=== PATIENT | male | born 1970 | race Caucasian/White ===

== ENCOUNTER 2024-08-11 09:03 | Emergency (ER) | payer OTHER, SELFPAY ==
[2024-08-11 09:05] VITALS: BP 137/71; PULSE 103; RESP 20; TEMP 36.5; O2SAT 94
--- NOTE | 2024-08-11 09:52 | CT_ITS ---
PROCEDURE: CHEST WITHOUT CONTRAST REASON FOR EXAM: Trauma TECHNIQUE: Chest CT without contrast. COMPARISON: None. FINDINGS: Hardware: None. Lymph nodes: No mediastinal hilar or axillary lymphadenopathy. Heart and Vasculature: Normal heart size. No pericardial effusion. Thoracic aorta and pulmonary arteries have normal contours; noncontrast technique limits evaluation. Coronary Artery Calcifications: Cystic lesion medially left hemithorax measuring up to 3.4 cm. Intrapulmonary cyst is suggested. Localized tiny pneumothorax can not be entirely excluded. [place] consolidation in the right lower lobe with air bronchograms are seen. CT abdomen pelvis dictated separately. Minimally displaced anterolateral left 7th rib fracture CT/Chest without Contrast IMPRESSION: Cystic lesion medially left hemithorax measuring up to 3.4 cm. Intrapulmonary cyst is suggested. Localized tiny pneumothorax cannot be entirely excluded. Confluent pneumonia in the right lower lobe. Minimally displaced anterolateral left 7th rib fracture. One or more dose reduction techniques were used (e.g., Automated exposure contr ol, adjustment of the mA and/or kV according to patient size, use of iterative reconstruction technique). Reading [facility]
--- NOTE | 2024-08-11 09:52 | CT_ITS ---
PROCEDURE: ABDOMEN/PELVIS W IV CONT ONLY REASON FOR EXAM: Trauma TECHNIQUE: Abdomen and pelvis CT with intravenous contrast. COMPARISON: None. FINDINGS: CT chest dictated separately. Liver: Unremarkable. Gallbladder: Unremarkable. Spleen: Unremarkable. Pancreas: Unremarkable. Adrenals: Unremarkable. Kidneys: Unremarkable. Bladder: Unremarkable. Reproductive Organs: Left-sided inguinal hernia containing a portion of the bladder.. Bowel: Unremarkable. Appendix: Normal. Lymph nodes: No suspicious lymph node enlargement. Vasculature: Major vascular structures are unremarkable. Peritoneum / Retroperitoneum: No ascites. No free air. Bones: Unremarkable. CT/Abdomen/Pelvis W IV Cont ONLY IMPRESSION: Left-sided inguinal hernia containing fat and a portion of the bladder. No other acute process in the abdomen or pelvis. One or more dose reduction techniques were used (e.g., Automated exposure contr ol, adjustment of the mA and/or kV according to patient size, use of iterative reconstruction technique). Reading Location: [facility]
--- NOTE | 2024-08-11 09:54 | ED.VIS.FALL ---
HPI HPI - Fall History of Present Illness Chief Complaint: Fall Detail of Chief Complaint: Fell 7 feet to the ground at work on Tuesday. Informant: patient and spouse/S.O. Occured/Mechanism Occurred: Yesterday Narrative: Fell 78 feet to the ground at work yesterday. Complaining primarily left rib cage pain. Pain/Injury Pain Location: chest (Left rib cage pain.) Quality of Pain: Sharp Current Severity: 7/10 Maximum Severity: Moderate Narrative Narrative: Healthy 54-year-old male was at work yesterday was about 78 feet off the ground and a plank broke fell to the ground injuring his left rib cage. Said he did not hit his head. Denies any head or neck pain. Denies any back pain. He is concerned with his left lateral rib cage. She also hit his hip but he said it feels fine has been able to walk. No LOC. No headache. Prior similar symptoms: No Recent Illness/Hospitalization: No PFSH PFSH Medical History no medical history no medical history Home Medications ?Medication ?Instructions ?Recorded ?Last Taken ?Type azithromycin 250 mg tablet 250 mg PO DAILY 4 days #4 tabs 08/11/24 Unknown Rx (Zithromax) hydrocodone 5 mg-acetaminophen 300 1 tab PO Q4H 7 days #30 tabs 08/11/24 Unknown Rx mg tablet Allergy/AdvReac Type Severity Reaction Status Date / Time No Known Allergies Allergy Verified 08/11/24 11:30 Family History no significant family his Surgical History no surgical history Social History Smoking Status: Former smoker ROS ROS ED ROS Narrative Recent fever. Believes he may have a viral syndrome. Constitutional Constitutional ED: Reports fever(s) Eyes Eyes: Denies blurry vision ENT ENT ED: Denies ear pain Cardiovascular Cardiovascular: Reports other Details: Left rib pain post fall. Respiratory/Chest Respiratory/Chest: Denies dyspnea Gastrointestinal Gastrointestinal: Denies abdominal pain Genitourinary Genitourinary ED: Denies dysuria or hematuria Musculoskeletal Musculoskeletal: Denies arthralgias Integumentary Denies abscess Neurologic Neurologic: Denies headache(s) Psychiatric Psychiatric: Denies anxiety or depression Endocrine Endocrinology: Denies polydipsia, polyphagia or polyuria Hematologic/Lymphatic Hematologic/Lymphatic: Denies easy bleeding, easy bruising, lymphadenopathy or other Allergic/Immunologic Allergic/Immunologic ED: Denies mouth swelling, tongue swelling or urticaria EXAM Physical Exam Narrative Exam Narrative: 54-year-old male sitting upright in bed. Vital signs are stable afebrile. and son in the room. Pulse ox 94% on room air no signs hypoxia. He is in no distress. H EENT exam pupils round reactive light. Extra motions are intact. No trauma to his face nor tenderness. No swelling or bruising. Scalp nontender. Moist mucous membranes. Posterior pharynx unremarkable. Neck nontender. Trachea midline. Normal flexion extension and rotation of his neck. Back and spine nontender. No bruising. No signs of trauma. Lungs clear to auscultation bilaterally. Heart tachycardic 103 no murmur. Sternum and right chest nontender. Left lateral ribs tender to palpation. No crepitance or subcu air. No bruising. Abdomen soft nondistended normal bowel sounds no peritoneal signs. When you push in his left flank area he complains of rib cage pain. Pelvic girdle intact. Moving all 4 extremities. Normal flexion extension of both hips and knees dorsi and plantarflexion. The left hip is nontender. He has normal range of motion. There is no shortening or rotation. Neurologically he is awake and alert no focal motor deficits. GCS 15. Answering questions and following commands. Const Vital Signs: 08/11/24 09:05 08/11/24 11:05 08/11/24 13:11 Temperature 97.7 F L Temperature Source Temporal Pulse Rate 103 H 72 Respiratory Rate 20 H Blood Pressure 137/71 H 127/62 H 123/71 H Blood Pressure Mean 93 83 88 Pulse Ox 94 91 Oxygen Delivery Method Room Air Room Air Positive well nourished and well developed; Negative for cachectic, contractures or unkempt General Appearance ED: well developed and NAD; Negative for unkempt, cachectic or contractures Nutritional Appearance: Negative for cachectic HEENT Reports normocephalic atraumatic; Negative for trauma, contusion, hematoma or tenderness Eyes PERRL and EOMs intact bilaterally Neck full ROM, no lymphadenopathy and supple Chest Wall inspection of chest normal; Negative for palpation of chest normal Chest Narrative: Left lateral rib cage tenderness. No crepitance. No bruising or subcu air. Resp normal respiratory effort, no retractions and clear to auscultation bilaterally Auscultation: Negative for rales, rhonchi, wheezes or diminished lung sounds Cardio regular rhythm, S1 normal heart sound, S2 normal heart sound and no murmurs; Negative for regular rate Rate: tachycardic GI non-tender, non-distended and no masses Inspection: Negative for abdominal distention Palpation: soft; Negative for guarding or rebound tenderness present Back/Spine no CVA tenderness General Back: Negative for CVA tenderness or erythema Cervical Spine: Negative for cervical spine tenderness Lumbar Spine / Lower Back: Negative for lumbar spinal tenderness Neuro oriented x3, CN's II-XII intact bilaterally, moves all extremities, no focal motor deficits and no sensory deficits noted Dexter Coma Scale: document GCS findings Spontaneous Obeys Commands Oriented 15 Sensorium / Orientation: alert, oriented to person, oriented to place and oriented to time; Negative for orientation impaired, confused or lethargic Motor Exam: strength 5/5 throughout Psych mental status grossly normal and thought process normal Appearance: Negative for unkempt Skin Lesions: no lesions Rashes: no rashes Trauma: Negative for abrasion or laceration MDM MDM MDM Narrative Medical decision making narrative: 54-year-old [facility] male fell injuring his left rib cage on Tuesday. This is a Worker's Comp. claim. He fell about 78 feet to the ground. CAT scan of his chest and abdomen will be obtained. He denies any head injury LOC there is no signs of trauma to his head. Given morphine for pain and Zofran. Repeat exam patient is doing well at 1:35 PM. He has a left seventh rib fracture from the fall. He also has an incidental finding of pneumonia which she has had URI symptoms the last several days. For the rib fracture be placed on Vicodin for pain. #30 no refill. For the pneumonia will be placed on Zithromax given his first dose here. Then treated daily for 4 more days. Outpatient follow-up. Return if worse. On repeat exam his exam is unchanged. His right chest wall is nontender. There is no bruising on the left or subcu air. His abdomen is benign. He is awake alert. Answering questions following commands. I went over all the diagnoses and CAT scans with he and his family at bedside. They are comfortable with the plan. History & Record Review Discussion w/independent historian: Patient Radiography Diagnostic Testing: Clinical Impression(s) from Imaging Studies Abdomen/Pelvis CT 08/11/24 09:52 IMPRESSION: Left-sided inguinal hernia containing fat and a portion of the bladder. No other acute process in the abdomen or pelvis. One or more dose reduction techniques were used (e.g., Automated exposure control, adjustment of the mA and/or kV according to patient size, use of iterative reconstruction technique). Reading Location: [facility] Chest CT 08/11/24 09:52 IMPRESSION: Cystic lesion medially left hemithorax measuring up to 3.4 cm. Intrapulmonary cyst is suggested. Localized tiny pneumothorax cannot be entirely excluded. Confluent pneumonia in the right lower lobe. Minimally displaced anterolateral left 7th rib fracture. One or more dose reduction techniques were used (e.g., Automated exposure control, adjustment of the mA and/or kV according to patient size, use of iterative reconstruction technique). Reading Location: [facility] Discharge Plan Triage Chief Complaint: Fall ED Provider: [place] Dx/Rx/DC Orders Clinical Impression: Fall, Left rib fracture, Pneumonia, Encounter related to worker's compensation claim Instructions: ED Rib Fracture, ED Pneumonia (Adult) Prescriptions: New azithromycin [Zithromax] 250 mg tablet 250 mg PO DAILY 4 Days Qty: 4 0RF Rx Instructions: start on day 2 of therapy hydrocodone-acetaminophen 5-300 mg tablet 1 tab PO Q4H 7 Days Qty: 30 0RF Primary Care Provider: Care Physician,No Primary Referrals: Freddy Keane MD [Med Staff - Adjuster Arbitrator] - 1 Week Giles Hummel DO [Non-Staff] - Activity Restrictions/Additional Instructions: Ice to your left rib cage. Use a pillow to brace your left rib. You have a broken rib #7 on the left side. You also have pneumonia on the right side. That had nothing to do with the fall today. He will be started on antibiotic Zithromax. He will be given 2 today here. Then you will take it once a day for the next 4 days. Darting tomorrow. For the broken ribs will be written for the pain medication Vicodin you can use 1-2 of those every 4-6 hours as needed for pain. Plenty of fluids and fiber to prevent constipation. Stool softener as needed. You can also use Tylenol and Motrin for the pain. Follow-up to ensure you are improving or return if worse. Print Language: German Disposition Disposition: Home, Self Care
[2024-08-11] MEDS: Ondansetron 4 MG/2 ML Vial IV (10:07)
[2024-08-11] MEDS: morphine 8 MG/ML Syringe 6 MG IV ×2 (10:08→11:29)
[2024-08-11 11:05] VITALS: BP 127/62; PULSE 72; O2SAT 91
[2024-08-11 11:07] VITALS: BMI 35.4
[2024-08-11 13:11] VITALS: BP 123/71
[2024-08-11 13:59] VITALS: BP 148/66; PULSE 105; RESP 18; TEMP 36.5; O2SAT 91
[2024-08-11] MEDS: HYDROcodone Bitartrate/Apap 5/325 Tablet PO (14:02)
[2024-08-11] MEDS: Azithromycin 250 MG Tablet 500 MG PO (14:02)
== END 2024-08-11 14:08 | disposition home or self-care (01) ==
PROVIDERS: Emergency Provider Emergency Medicine; Visit Provider Emergency Medicine
DX: S22.32XA Fracture of one rib, left side, initial encounter for closed fracture (principal); J18.9 Pneumonia, unspecified organism; Z87.891 Personal history of nicotine dependence; W17.89XA Other fall from one level to another, initial encounter; Y99.0 Civilian activity done for income or pay; Y92.89 Other specified places as the place of occurrence of the external cause
CPT/HCPCS: 71250; 74177; 96374; 96375; 96376; 99283; Q9967; A4216; J2405

== ENCOUNTER 2024-11-09 10:20 | Inpatient (IN) | payer OTHER, SELFPAY ==
[2024-11-09] VITALS (15 sets, daily range): BP systolic 112–156; BP diastolic 69–98; PULSE 17–78; RESP 16–29; TEMP 36.4–36.8; O2SAT 89–98; BMI 34.0; BMI 34.4
--- NOTE | 2024-11-09 11:00 | EDS_ITS ---
HPI History of Present Illness Chief Complaint: Shortness of Breath Onset/Context/Timing Onset: Weeks (1.5) Context: gradual Timing: Continuous Quality: Positive for Dyspnea on exertion Worsened by: Exertion Relieved by: Rest Associated Symptoms Negative for cough, rhinorrhea, post nasal drip, ear pain, fever, sore throat, chills, sweats, clear sputum, white sputum, yellow sputum or green sputum Chest Pain: Positive for None Narrative Narrative: Patient presents with shortness of breath that has been worse for the past week and a half patient states it is gradually gotten worse. Patient states his breathing is worse with any exertion. Patient states it is better with rest. Patient denies any cough or fevers. Patient went to his primary care physician today who ordered an outpatient chest x-ray. This was interpreted by the radiologist as a complete pneumothorax on the left. Patient was then referred to the emergency department. PE Risk Factors: Negative for Cancer, OCP + Smoking + > 35, Prior DVT or PE, Recent immobilization, Recent surgery or Recent travel PFSH PFS Home Medications ?Medication ?Instructions ?Recorded ?Last Taken ?Type NK 11/09/24 Unknown History Allergy/AdvReac Type Severity Reaction Status Date / Time No Known Allergies Allergy Verified 11/09/24 10:40 Surgical History (Updated 11/09/24 @ 11:[address] Aston Lemos DO) S/P ORIF (open reduction internal fixation) fracture Social History Smoking Status: Former smoker ROS ROS ED Constitutional Constitutional ED: Denies chills or fever(s) Eyes Eyes: Denies blurry vision or change in vision ENT ENT ED: Denies rhinorrhea or sore throat Cardiovascular Cardiovascular: Denies chest pain or palpitations Respiratory/Chest Respiratory/Chest: Reports dyspnea; Denies cough Gastrointestinal Gastrointestinal: Denies nausea or vomiting Genitourinary Genitourinary ED: Denies dysuria or hematuria Musculoskeletal Musculoskeletal: Denies back pain or neck pain Integumentary Denies abscess or rash Neurologic Neurologic: Denies headache(s) or weakness Allergic/Immunologic Allergic/Immunologic ED: Denies mouth swelling or urticaria EXAM Physical Exam Const Vital Signs: 11/09/24 10:20 11/09/24 10:30 11/09/24 11:20 Temperature 97.6 F L Temperature Source Temporal Pulse Rate 73 46 L Respiratory Rate 19 H 29 H Respiratory Effort Short of Breath Respiratory Depth Shallow Blood Pressure 156/98 H 128/77 H Blood Pressure Mean 117 94 Pulse Ox 95 98 Oxygen Delivery Method Room Air Room Air Room Air 11/09/24 12:00 11/09/24 13:00 11/09/24 14:00 Temperature Temperature Source Pulse Rate 76 78 67 Respiratory Rate 20 H 19 H 20 H Respiratory Effort Respiratory Depth Blood Pressure 112/85 H 145/80 H 151/98 H Blood Pressure Mean 94 101 115 Pulse Ox 92 94 98 Oxygen Delivery Method Room Air 11/09/24 15:00 11/09/24 16:19 Temperature Temperature Source Pulse Rate 78 64 Respiratory Rate 20 H Respiratory Effort Respiratory Depth Blood Pressure 130/90 H 121/69 H Blood Pressure Mean 103 86 Pulse Ox 94 Oxygen Delivery Method Positive well nourished and well developed Constitutional Narrative: BMI is 34.0 General Appearance ED: well developed and NAD HEENT Reports moist mucous membranes Neck no lymphadenopathy, supple, no meningeal signs and no JVD Neck Narrative: Trachea is midline. Resp normal respiratory effort Auscultation: diminished lung sounds left Cardio regular rate and regular rhythm GI non-tender and non-distended Palpation: soft Neuro oriented x3, CN's II-XII intact bilaterally and no sensory deficits noted Colp Coma Scale: document GCS findings Spontaneous Obeys Commands Oriented 15 Sensorium / Orientation: alert Speech: speech normal Motor Exam: strength 5/5 throughout MDM MDM MDM Narrative Medical decision making narrative: Patient was advised of his x-ray findings. Patient was advised of the need for chest tube placement. Patient was advised of the risks and benefits of chest tube placement. Patient is agreeable to proceed with chest tube placement. All questions were answered. Radiography Diagnostic Testing: Clinical Impression(s) from Imaging Studies Chest X-Ray 11/09/24 11:50 IMPRESSION: Chest tube catheter placed in the left upper lung field. Persistent pneumothorax. Clinical correlation is recommended. Reading Location: [facility] Chest X-Ray 11/09/24 13:30 IMPRESSION: Persistent left-sided pneumothorax, unchanged. Clinical correlation is recommended. Reading Location: [facility] Chest X-Ray 11/09/24 14:25 IMPRESSION: Left chest tube is in place. Reading Location: [facility] Treatment and Re-Evaluation :: After informed consent, the left anterior chest was cleaned and prepped in a sterile manner. 1% lidocaine was used locally. A pneumo dart tube was then inserted. Dressing was applied. Repeat chest x-ray was obtained. There is no reexpansion of the lung. The pneumo dart was then hooked up to suction and repeat chest x-ray was obtained. There is no reexpansion. A lateral chest x- ray was obtained. The pneumo dart tube appeared to be kinked. This was withdrawn. The chest was prepped again in a sterile manner and was draped. I attempted to place a pigtail catheter over a guidewire. The pleural cavity was punctured and there was return. Guidewire was advanced. However, the pigtail catheter was unable to be advanced over the guidewire. This was all withdrawn. I asked Dr. Bassett to come in and assist with this. She was able to insert a small tube over a needle. There is good air return with this. The tube was then hooked up to suction. The tube was sutured in place. Iodoform gauze was placed around the tube and a occlusive dressing was placed over this. Repeat chest x-ray was obtained. There is reexpansion of the lung. Case was discussed with Dr. Bradford. He will admit the patient to his service for observation. Patient and family understood and were agreeable with the plan. All questions were answered. Procedures Other Procedures Procedure(s): After informed consent, the left anterior chest was cleaned and prepped in a sterile manner. 1% lidocaine was used locally. A pneumo dart tube was then inserted. Dressing was applied. Repeat chest x-ray was obtained. There is no reexpansion of the lung. The pneumo dart was then hooked up to suction and repeat chest x-ray was obtained. There is no reexpansion. A lateral chest x-ray was obtained. The pneumo dart tube appeared to be kinked. This was withdrawn. The chest was prepped again in a sterile manner and was draped. I attempted to place a pigtail catheter over a guidewire. The pleural cavity was punctured and there was return. Guidewire was advanced. However, the pigtail catheter was unable to be advanced over the guidewire. This was all withdrawn. I asked Dr. Bassett to come in and assist with this. She was able to insert a small tube over a needle. There is good air return with this. The tube was then hooked up to suction. The tube was sutured in place. Iodoform gauze was placed around the tube and a occlusive dressing was placed over this. Repeat chest x-ray was obtained. There is reexpansion of the lung. Discharge Plan Triage Chief Complaint: Shortness of Breath ED Provider: Aston Lemos Dx/Rx/DC Orders Clinical Impression: Pneumothorax, Dyspnea Prescriptions: No Action NK Primary Care Provider: Kristie Herndon Referrals: Kristie Herndon MD [Primary Care Provider] - Print Language: Tristanian Disposition Disposition: Acute Care Hospital [facility]
--- NOTE | 2024-11-09 11:50 | RAD_ITS ---
EXAM: XR Chest, 1 View CLINICAL INDICATION: CHEST TUBE PLACEMENT TECHNIQUE: Frontal view of the chest. COMPARISON: Earlier today FINDINGS: LUNGS AND PLEURAL SPACES: See below. HEART: Unremarkable. No cardiomegaly. MEDIASTINUM: Unremarkable. Normal mediastinal contour. BONES/JOINTS: Unremarkable. No acute fracture. TUBES, LINES AND DEVICES: Chest tube catheter placed in the left upper lung field. Persistent pneumothorax. Clinical correlation is recommended. RAD/Chest 1 View (Portable) IMPRESSION: Chest tube catheter placed in the left upper lung field. Persistent pneumothor ax. Clinical correlation is recommended. Reading [facility]
[2024-11-09] MEDS: Lidocaine 1% (20 ml mdv) 20 ML Vial INFILT ×2 (11:52→16:28)
[2024-11-09] MEDS: HYDROcodone Bitartrate/Apap 5/325 Tablet PO (13:01)
--- NOTE | 2024-11-09 13:30 | RAD_ITS ---
EXAM: XR Chest, 1 View CLINICAL INDICATION: PNEUMOTHORAX TECHNIQUE: Frontal view of the chest. COMPARISON: Earlier today FINDINGS: LUNGS AND PLEURAL SPACES: Persistent left-sided pneumothorax, unchanged. Clinical correlation is recommended. HEART: Unremarkable. No cardiomegaly. MEDIASTINUM: Unremarkable. Normal mediastinal contour. BONES/JOINTS: Unremarkable. No acute fracture. TUBES, LINES AND DEVICES: Left-sided chest tube catheter unchanged. RAD/Chest 1 View (Portable) IMPRESSION: Persistent left-sided pneumothorax, unchanged. Clinical correlation is recomme nded. Reading [facility]
--- NOTE | 2024-11-09 14:25 | RAD_ITS ---
PROCEDURE: CHEST 1 VIEW (PORTABLE) 11/09/2024 REASON FOR EXAM: PNEUMOTHORAX Check chest tube placement. Follow-up lateral. TECHNIQUE: Frontal view of the chest. COMPARISON: Earlier study dated 11/09/2024 FINDINGS: A left chest tube is in place. No other significant findings. RAD/Chest 1 View (Portable) IMPRESSION: Left chest tube is in place. Reading Location: [facility]
[2024-11-09] MEDS: Morphine 4 MG/ML Syringe IV (16:00)
--- NOTE | 2024-11-09 16:28 | RAD_ITS ---
PROCEDURE: CHEST 1 VIEW (PORTABLE) 11/09/2024 REASON FOR EXAM: CHEST TUBE PLACEMENT TECHNIQUE: Frontal view of the chest. COMPARISON: 11/10/2019 FINDINGS: Hardware: Left upper lobe chest tube. Heart: Cardiac and mediastinal contours are stable. Lungs: Linear opacity left mid lung zone, compatible with atelectasis. No pneumothorax. No pleural effusion. Bones: The bones are unremarkable. Other: RAD/Chest 1 View (Portable) IMPRESSION: No Acute Findings. Reading Location: [facility]
[2024-11-09] MEDS: Cefazolin 1 GM/50 ML BAG IV (16:36)
--- NOTE | 2024-11-09 17:49 | HP.PCM_ITS ---
[facility] - General General Date of Admission: 11/09/24 Chief Complaint: Acute onset of shortness of breath HPI Narrative MAGDIEL YOUNGBLOOD, is a 54 M who presents to [facility] with complaints of 1-1/2 weeks of progressive shortness of breath and decreased exe rcise tolerance. He states he initially tried to self medicate for sensitivities to pollen but the shortness of breath became so progressive he told his he needed to seek medical attention. He states he was no longer able to even walk a short distance without becoming winded. He was evaluated at outpatient setting with chest x-ray which showed a large left pneumothorax and was directed to present to the emergency department. In the emergency department patient underwent chest tube placement with a pneumo dart but this appeared to kink and so emergency medicine used a pigtail catheter and there was immediate reexpansion of the lung. They discussed possible outpatient management of this pneumothorax but I recommended inpatient admission with a goal of hopefully removing patient's chest tube sooner and minimizing the risk for emergency. Through further discussion patient admits to recent trauma in August of this year where he fell approximately 8 feet from height to the frozen ground below. He states that although he fell onto his left hip a plank fell on top of his chest and cause significant chest discomfort. He reports a delayed presentation approximately 24 hours after his trauma to the emergency department. Here CT chest was performed demonstrating small pneumothorax and a rib fracture. He was discharged home with word that he may have a small pneumonia in the lung as well. He states that he did well overall following this time until a week and a half ago, but his who was present, suggest that there were lingering concerns for her along. Patient has no significant past medical history but is quick to admit he does not regularly follow with a medical provider. He does admit to a smoking history of approximately 20 pack years (10 years at 2 packs/day). He states that he underwent smoking cessation approximately 15 years ago. [facility] Home Medications ?Medication ?Instructions ?Recorded ?Last Taken ?Type NK 11/09/24 Unknown History Allergy/AdvReac Type Severity Reaction Status Date / Time No Known Allergies Allergy Verified 11/09/24 10:40 Surgical History (Updated 11/09/24 @ 11:[address] Aston Lemos, DO) S/P ORIF (open reduction internal fixation) fracture Social History Smoking Status: Former smoker Vital Signs Vital Signs Vital Signs: 11/09/24 10:20 11/09/24 10:30 11/09/24 11:20 Temperature 97.6 F L Temperature Source Temporal Pulse Rate 73 46 L Respiratory Rate 19 H 29 H Respiratory Effort Short of Breath Respiratory Depth Shallow Blood Pressure 156/98 H 128/77 H Blood Pressure Mean 117 94 Pulse Ox 95 98 Oxygen Delivery Method Room Air Room Air Room Air 11/09/24 12:00 11/09/24 13:00 11/09/24 14:00 Temperature Temperature Source Pulse Rate 76 78 67 Respiratory Rate 20 H 19 H 20 H Respiratory Effort Respiratory Depth Blood Pressure 112/85 H 145/80 H 151/98 H Blood Pressure Mean 94 101 115 Pulse Ox 92 94 98 Oxygen Delivery Method Room Air 11/09/24 15:00 11/09/24 16:19 11/09/24 16:32 Temperature 98.3 F Temperature Source Pulse Rate 78 64 64 Respiratory Rate 20 H 20 H Respiratory Effort Respiratory Depth Blood Pressure 130/90 H 121/69 H 121/69 H Blood Pressure Mean 103 86 86 Pulse Ox 94 96 Oxygen Delivery Method 11/09/24 17:00 Temperature Temperature Source Pulse Rate 72 Respiratory Rate 19 H Respiratory Effort Respiratory Depth Blood Pressure 152/92 H Blood Pressure Mean 112 Pulse Ox 94 Oxygen Delivery Method Weight Weight: 250 lb 8 oz Body Mass Index (BMI) 34.0 Physical Exam Const alert, oriented x3, no apparent distress and well nourished General Appearance: cooperative Resp normal respiratory effort Resp Narrative: Patient with small bore chest tube to the left upper chest. There is a scant amount of bloody drainage about the insertion site. Chest tube initially connected with a Heimlich valve in line but once this was removed there is a small intermittent 1 column of air leak on the chest tube Pleur-evac system. Results Imaging Radiology Impression Chest X-Ray 11/09/24 11:50 IMPRESSION: Chest tube catheter placed in the left upper lung field. Persistent pneumothorax. Clinical correlation is recommended. Reading Location: [facility] Chest X-Ray 11/09/24 13:30 IMPRESSION: Persistent left-sided pneumothorax, unchanged. Clinical correlation is recommended. Reading Location: [facility] Chest X-Ray 11/09/24 14:25 IMPRESSION: Left chest tube is in place. Reading Location: [facility] Chest X-Ray 11/09/24 16:28 IMPRESSION: No Acute Findings. Reading Location: [id number] Assessment & Plan Assessment/Plan (1) Pneumothorax: PLAN: Patient 54-year-old male who presents with acute dyspnea and outpatient imaging that showed large left pneumothorax. Indeed, x-ray imaging is reviewed and showed complete collapse of the left lung but there are no signs of tension phenomenon. Chest tube was successfully placed by emergency medicine and there has been reexpansion of the lung. Upon my evaluation patient does have a small intermittent airleak at -20 cm of water. It remains unclear to me what the etiology for patient's pneumothorax is given an antecedent history of trauma and left rib fracture in August of this year. Additionally, CT imaging from his evaluation following that trauma showed apparent blebs in the lingula of the left lung and he has a history of tobacco use. I find it highly unusual for such a late presentation with a pneumothorax if this is related to his trauma. Instead, I suspect this is related to a bleb rupture from the finding seen on his CT imaging. Regardless, I discussed with him conservative management with keeping the chest tube to suction while he demonstrates evidence of an air leak. Will plan to repeat his chest x-ray in the a.m. If there is no air leak at that time would waterseal and determine timing for additional imaging/possible chest tube discontinuation. Nilton Bradford MD General Surgery Endocrine Surgery Pager: [facility] [address] [place] [address], [address] [place] [address] Office: [phone] Charges/Coding Visit Charges Inpatient E&M: 50364 Init Hosp L2
[2024-11-09] MEDS: oxyCODONE 5 MG Tablet PO (19:01)
[2024-11-09] MEDS: Acetaminophen 500 MG Tablet PO (19:01)
[2024-11-10] VITALS (10 sets, daily range): BP systolic 131–134; BP diastolic 71–81; PULSE 56–70; RESP 16–18; TEMP 36.3–36.7; O2SAT 90–97
[2024-11-10] MEDS: Acetaminophen 500 MG Tablet PO (04:05)
--- NOTE | 2024-11-10 04:35 | RAD_ITS ---
PROCEDURE: CHEST 1 VIEW (PORTABLE) 11/10/2024 REASON FOR EXAM: FOLLOW-UP LEFT PNEUMOTHORAX TECHNIQUE: Frontal view of the chest. 2 images to include the entire chest COMPARISON: 11/09/2024 FINDINGS: Small caliber left chest tube again noted with tip extending to the medial left apex. There is now some bending of the tube. No pneumothorax or pleural effusion identified. The lungs appear clear. The cardiac and mediastinal contours appear within limits. Right shoulder degenerative changes again noted. RAD/Chest 1 View (Portable) IMPRESSION: Small caliber left chest tube again noted with tip extending to the medial left apex. There is now some bending of the tube. No pneumothorax or pleural effusion identified. Reading Location: [id number]
--- NOTE | 2024-11-10 10:05 | PCM.PN.SRG ---
Subjective Subjective Patient seen and evaluated during AM rounds. He is found resting in bed eating his breakfast. He denies any shortness of breath and yet states he was placed on oxygen overnight due to low oxygen saturations. He reports that he is working diligently with his pulmonary toilet and making regular use of his incentive spirometer and Pep. Lastly he reports that the chest discomfort from his chest tube is definitely improved from yesterday. Objective Data Objective Data Vital Signs: Vital Signs Temp Pulse Resp BP Pulse Ox O2 Del Method O2 Flow Rate 97.4 F L 56 L 18 132/81 H 97 Room Air 2 11/10/24 08:13 11/10/24 08:13 11/10/24 08:13 11/10/24 08:13 11/10/24 10:01 11/10/24 10:01 11/10/24 08:13 Oxygen Flow Rate (L/min) 2 Oxygen Delivery Method Room Air Weight: 254 lb 6.615 oz Body Mass Index (BMI) 34.4 Intake & Output: Intake and Output for Last 24 Hours 11/08/24 11/09/24 11/10/24 23:59 23:59 23:59 Intake Total 50 / 50 Output Total 625 / 625 Balance 50 / 50 -625 / -625 Radiography Diagnostic Testing: Radiology Impression Chest X-Ray 11/09/24 11:50 IMPRESSION: Chest tube catheter placed in the left upper lung field. Persistent pneumothorax. Clinical correlation is recommended. Reading [facility] Chest X-Ray 11/09/24 13:30 IMPRESSION: Persistent left-sided pneumothorax, unchanged. Clinical correlation is recommended. Reading Location: [facility]- Chest X-Ray 11/09/24 14:25 IMPRESSION: Left chest tube is in place. Reading [facility] Chest X-Ray 11/09/24 16:28 IMPRESSION: No Acute Findings. Reading [facility] Chest X-Ray 11/10/24 04:35 IMPRESSION: Small caliber left chest tube again noted with tip extending to the medial left apex. There is now some bending of the tube. No pneumothorax or pleural effusion identified. Reading Location: [facility] Physical Exam Const oriented x3 and no apparent distress Resp normal respiratory effort Resp Narrative: Chest tube remains in place to left upper chest wall. Chest tube dressing appears intact and there appears to be no kinking of the chest tube despite several tight curves. There is no crepitus upon palpation of the chest wall. Patient remains appropriately to -20 cm water suction on his Pleur-evac device. He is asked to cough in succession and there is no evidence of air leak on the Pleur-evac device. Assessment & Plan Assessment/Plan (1) Pneumothorax: PLAN: Patient 54-year-old male who is admitted for inpatient management of large left pneumothorax status post small-caliber chest tube placement by emergency medicine yesterday. Encouragingly, patient's chest x-ray this morning showed no evidence of pneumothorax. On my reevaluation this morning patient has no evidence of an air leak and appears clinically improved. Although he denies any shortness of breath or chest discomfort he was noted to have mildly low oxygen saturations overnight (reportedly nursing to have dipped to the high 80s) so he was placed on supplemental oxygen. I have stressed to him the need to continue diligent work with his pulmonary toilet to be able to wean his oxygen requirement but given finding of no airleak I transitioned him to waterseal. Will plan to repeat his chest x-ray and reevaluate in 24 hours. If at that time there is still no evidence of air leak or pneumothorax I will discontinue his chest tube and obtain 1 last chest x-ray before planning for discharge home. Mr. Mrs. Jones expressed understanding but some mild frustration at not being able to be discharged home sooner. ? Waterseal chest tube today ? A.m. chest x-ray ? Wean supplemental O2 as able ? Notify surgery of any concerns immediately Nilton Bradford MD General Surgery Endocrine Surgery Pager: [facility] [address] [place] [address], [facility], [address] [place] [address] Office: [phone] Charges/Coding Visit Charges Inpatient E&M: 33836 Subs Hosp L2
--- NOTE | 2024-11-10 16:10 | CASEMGMT ---
RN?CM?RESOLUTION MANAGER?CM?to lobby to meet with patient for initial transition planning/care coordination?assessment.?RN?CM?introduced self and role at [facility].? Pt voices understanding and consents to?assessment?at this time.? Pt sitting up in chair in no distress at this time.? visiting w/pt. Pt is A/O at this time and answers all questions appropriately.?? Care providers, pharmacy, and demographics verified/updated at this time. PCP: Dr Herndon Specialists: none Preferred Pharmacy: [facility] Insurance: [employer] [facility] Prescription Benefit:? none LNOK: , Leeanna. 4 adult children Living Arrangements: Lives w/ in 2-story home w/2 steps to enter. Independent. 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 DME: ? Denies using any DME and denies needs.? HHC/SNF: No hx. Pt wishes to return home and states has no concerns with going home at time of discharge.? PLAN:??Home Sandrine MCFARLANEN?RN?CM
[2024-11-11] VITALS (8 sets, daily range): BP systolic 104–139; BP diastolic 71–77; PULSE 67–95; RESP 16–17; TEMP 36.7–36.9; O2SAT 94–98
[2024-11-11] MEDS: Acetaminophen 500 MG Tablet PO (04:53)
--- NOTE | 2024-11-11 07:00 | RAD_ITS ---
PROCEDURE: CHEST 1 VIEW (PORTABLE) 11/11/2024 REASON FOR EXAM: F/U L PTX AND CT TECHNIQUE: Frontal view of the chest. COMPARISON: 11/10/2024. FINDINGS: Left pleural drain is again noted with its tip in the apex of the left pleural cavity. No residual or recurrent pneumothorax is seen. The lungs are expanded. There is no demonstrated parenchymal abnormality. There is no demonstrated pleural abnormality. Normal heart and pericardium. Normal mediastinum and chadwick. Normal visualized pulmonary arteries. Normal visualized aortic arch and descending thoracic aorta. Diffuse spondylosis of the visualized thoracic spine. Normal visualized ribs, clavicles, and shoulders. There is no demonstrated abnormality of the visualized soft tissue structures of the upper abdomen. RAD/Chest 1 View (Portable) IMPRESSION: Left pleural drain is in good position. No residual or recurrent pneumothorax. Reading Location: [facility] [address]
--- NOTE | 2024-11-11 13:30 | DCINST_ITS ---
Discharge Instructions Diet Discharge Diet: No restrictions DC O2, CPAP, BIPAP needs Home O2 Discharge instructions: No Dressing / Incision Discharge Activity: May Not Shower (Recommend sponge baths only until chest tube dressing is discontinued in 48 hours) Additional Activity Instructions:: Keep to nonexertional activity following hospital discharge Dressing / Incision Call your doctor if your incision/area has: Increased Redness and Swelling at the incision site Call your doctor if you observe: Shortness of breath, Chest pain and Uncontrolled pain Remove Dressing in: 2 days Follow Up Care Please Follow Up With: Kristie Herndon MD When: 2 weeks posthospital discharge Test Results: Test results from this visit will be discussed in further detail at your follow- up appointment, if applicable. Discharge Plan Admission Admit Date/Time: 11/10/24 13:55 Primary Reason for Your Visit: Left-sided pneumothorax Attending Provider: Nilton Bradford Primary Care Provider: Kristie Herndon Instructions Additional Instructions / Restrictions: Patient should notify PCP about nocturnal hypoxia and consider obtaining formal sleep study Discharge Orders/Prescriptions Prescriptions: No Action NK Referrals / Follow Up: Kristie Herndon MD [Primary Care Provider] - Disposition Disposition (needs filled in before D/C Order can be placed): Home, Self Care
--- NOTE | 2024-11-11 13:33 | PCM.DC.SUM ---
Providers Date of Admission: 11/10/24 Primary Care Physician: Dr. Kristie Herndon MD Reason For Visit: LEFT PNEUMOTHORAX Diagnosis Discharge Diagnosis (1) Pneumothorax: Status: Acute Code(s): J93.9 - Pneumothorax, unspecified Plan: Patient 54-year-old male who is admitted for inpatient management of large left pneumothorax status post small-caliber chest tube placement by emergency medicine yesterday. Encouragingly, patient's chest x-ray this morning showed no evidence of pneumothorax. On my reevaluation this morning patient has no evidence of an air leak and appears clinically improved. Although he denies any shortness of breath or chest discomfort he was noted to have mildly low oxygen saturations overnight (reportedly nursing to have dipped to the high 80s) so he was placed on supplemental oxygen. I have stressed to him the need to continue diligent work with his pulmonary toilet to be able to wean his oxygen requirement but given finding of no airleak I transitioned him to waterseal. Will plan to repeat his chest x-ray and reevaluate in 24 hours. If at that time there is still no evidence of air leak or pneumothorax I will discontinue his chest tube and obtain 1 last chest x-ray before planning for discharge home. . Mrs. Jones expressed understanding but some mild frustration at not being able to be discharged home sooner. ? Waterseal chest tube today ? A.m. chest x-ray ? Wean supplemental O2 as able ? Notify surgery of any concerns immediately Nilton Bradford MD General Surgery Endocrine Surgery Pager: [facility] [address] [place] [address], [address] [place] [id number] Office: [phone] Medications at Discharge Home Medications NK 11/09/24 Hospital Course Operations None Procedures - (Chest tube placement) Summary of Care Provided Hospital Course: Patient is a 54-year-old male who presented with large left pneumothorax diagnosed on outpatient imaging 11/09/2024. Emergency medicine placed small bore chest tube to left upper chest and there was immediate reexpansion of the lung. Upon my exam in the emergency department patient had evidence of a small air leak he was admitted for inpatient management. By the morning of hospital day 2 there is no further demonstration of airleak and no pneumothorax showing on routine chest x-ray. Thus he was placed to waterseal and chest x-ray was rechecked hospital day 3. Once again there is no sign of pneumothorax or air leak on the Pleur-evac system. With these reassuring exams his chest tube was discontinued at bedside. A post pull chest x-ray was obtained at 4 hours and showed no sizable pneumothorax. By my independent review of this imaging I do not identify any pneumothorax. Patient remains clinically stable from a respiratory standpoint. There is post pull chest tube dressing remains well adherent to the site. Outpatient expectations for both activity and PCP follow-up were reviewed. Patient and his family confirm understanding. Discharge was then granted. Physical Exam Const alert, oriented x3 and no apparent distress Resp normal respiratory effort Resp Narrative: Normal respirations, nonlabored, no crepitus of the chest wall, no evidence of air leak in the Pleur-evac waterseal chamber initially. Dressing following chest tube removal remained intact and air/watertight. Weight / BMI Weight Weight: 254 lb 6.615 oz Body Mass Index (BMI) 34.4 Radiography Diagnostic Testing: Radiology Impression Chest X-Ray 11/11/24 07:00 IMPRESSION: Left pleural drain is in good position. No residual or recurrent pneumothorax. Reading Location: [place] [address] Chest X-Ray 11/11/24 13:35 IMPRESSION: Interval removal of left chest tube without sizable pneumothorax. Reading Location: [facility] D/C Instructions Discharge Diet: No restrictions Additional Activity Instructions: Keep to nonexertional activity following hospital discharge Call your doctor if your incision/area has: Increased Redness and Swelling at the incision site Call your doctor if you observe: Shortness of breath, Chest pain and Uncontrolled pain DC O2, CPAP, BIPAP Needs Home O2 Discharge instructions: No Please Follow Up With: Kristie Herndon MD When: 2 weeks posthospital discharge Meaningful Use Info Meaningful Use Meaningful Use Diagnoses (Choose all that apply): None applicable Ischemic Stroke Statin Dosing Therapy Reference: STATIN DOSE THERAPY REFERENCE: * Patients > 75 years receive moderate or high dose statin therapy. * Patients 75 years or YOUNGER should receive HIGH intensity statin dose unless contraindicated. You will be required to document reason for non-treatment if statin daily dose does not meet guidelines. HIGH DOSE STATIN THERAPY DAILY Atorvastatin > than or = to 40 mg Rosuvastatin > than or = to 20 mg Amlodipine + Atorvastatin > than or = to 2.5/40 mg Ezetimibe + Simvastatin 10/80 mg Simvastatin 80mg Discharge Plan Admission Admit Date/Time: 11/10/24 13:55 Primary Reason for Your Visit: Left-sided pneumothorax Attending Provider: Nilton Bradford Primary Care Provider: Kristie Herndon Instructions Additional Instructions / Restrictions: Patient should notify PCP about nocturnal hypoxia and consider obtaining formal sleep study Discharge Orders/Prescriptions Prescriptions: No Action NK Referrals / Follow Up: Kristie Herndon MD [Primary Care Provider] - Disposition Disposition (needs filled in before D/C Order can be placed): Home, Self Care Charges/Coding Visit Charges Inpatient E&M: 32051 [facility] Hosp L1
--- NOTE | 2024-11-11 13:35 | RAD_ITS ---
PROCEDURE: CHEST 1 VIEW (PORTABLE) 11/11/2024 REASON FOR EXAM: F/U CHEST TUBE REMOVAL TECHNIQUE: Frontal view of the chest. COMPARISON: 11/11/2024 FINDINGS: No focal consolidations. Interval removal of left chest tube without sizable pneumothorax. No pleural effusions. Cardiac silhouette is unchanged. No acute fractures RAD/Chest 1 View (Portable) IMPRESSION: Interval removal of left chest tube without sizable pneumothorax. Reading Location: [facility]
== END 2024-11-11 15:43 | disposition home or self-care (01) | DRG 201 ==
LOC: ED 16:53 → MS3 18:10
PROVIDERS: Admitting Provider Surgery; Emergency Provider Emergency Medicine; PCP Family Medicine; Visit Provider Surgery
DX: J93.9 Pneumothorax, unspecified (principal); Z87.891 Personal history of nicotine dependence
CPT/HCPCS: 32551; 71045; 94668; 99283; A4216

== ENCOUNTER → 2024-11-09 | Outpatient (CLI) | payer SELFPAY ==
--- NOTE | 2024-11-09 09:55 | RAD_ITS ---
PROCEDURE: CHEST PA AND LATERAL 11/09/2024 REASON FOR EXAM: SOB, DYSPNEA TECHNIQUE: Frontal and lateral views of the chest. COMPARISON: CT chest dated 08/11/2024 FINDINGS: Lungs: A total left lung pneumothorax. Pleura: No pleural effusions, thickening, or pneumothorax. Heart: Normal in size and configuration. Suspicion of mild pneumopericardium and/or pneumomediastinum. Mediastinum/Dori: Mild rightward shift of the mediastinum. Great vessels: Unremarkable. Bones/soft tissues: Unremarkable. RAD/Chest PA and Lateral IMPRESSION: Right tension pneumothorax with total collapse of the left lung. Suspicion of mild pneumopericardium and/or pneumomediastinum. Findings were relayed to the ED physician at 1020 hours. Reading Location: [facility]
== END | disposition home or self-care (01) ==
PROVIDERS: PCP Family Medicine; Referring Provider Family Medicine; Visit Provider Family Medicine
DX: R06.00 Dyspnea, unspecified (principal)
CPT/HCPCS: 71046

== ENCOUNTER 2024-12-14 12:06 | Emergency (ER) | payer OTHER, SELFPAY ==
[2024-12-14] VITALS (44 sets, daily range): BP systolic 105–167; BP diastolic 69–106; PULSE 66–86; RESP 14–30; TEMP 36.6–37.1; O2SAT 91–98; BMI 34.4
[2024-12-14 12:47] LABS: Absolute Lymphocyte Count 2.32 X10^3/uL (0.83-4.51); Absolute Neutrophil Count 2.7 X10^3/uL (2.0-7.7); Basophil# 0.04 X10^3/uL; Basophil% 0.7 % (0-1); Eosinophil# 0.12 X10^3/uL; Eosinophils% 2.1 % (0-5); Hemoglobin 14.1 g/dL (13.0-16.5); Lymphocyte # 2.32 X10^3/ul (0.83-4.51); Lymphocyte % 40.6 % (19-41); Mean Corp Hgb Conc 33.6 g/dL (32-36); Mean Corpuscular Hgb 28.3 pg (27.0-32.0); Mean Corpuscular Volume 84.2 fL (80-94); Monocyte% 8.7 % (0-10); NRBC Flagged by Analyzer 0 % (0-5); Neutrophil # 2.72 X10^3/uL (2.7-7.7); Neutrophil % 47.6 % (47-70); Platelet Count 254 K/mm3 (150-450); RBC Distribution Width CV 13.5 % (11.6-14.6); RBC Distribution Width SD 41.1 fl (35.1-43.9); Red Blood Count 4.99 M/mm3 (4.6-6.2); White Blood Count 5.7 K/mm3 (4.4-11.0)
[2024-12-14 12:58] LABS: International Normalized Ratio 0.9; Prothrombin Time (Protime)PT. 12.6 SECONDS (11.7-14.9)
[2024-12-14 12:59] LABS: Partial Thromboplast Time 25.4 Seconds (24.1-36.2)
[2024-12-14 13:03] LABS: Anion Gap 12 (5-15); BUN 18 mg/dL (4-19); BUN/Creat Ratio 22.5 RATIO (10-20); Carbon Dioxide 20.8 mmol/L (21.0-32.0); Chloride 105 mmol/L (98-108); Creatinine, Serum 0.79 mg/dL (0.70-1.20); EST Glomerular Filtration Rate 104 (>60); Estimated Creatinine Clearance 136.82 ml/min (50-250); Glucose 94 mg/dL (70-99); Sodium Level 138 mmol/L (133-145)
[2024-12-14] MEDS: Lidocaine 1% /Epi 1:100 (20ml) 20 ML Vial 10 ML INFILT (14:24)
[2024-12-14] MEDS: Midazolam 2 MG/2 ML Syringe IV ×2 (14:26→15:17)
--- NOTE | 2024-12-14 14:50 | RAD_ITS ---
PROCEDURE: CHEST 1 VIEW (PORTABLE) 12/14/2024 REASON FOR EXAM: THORAVENT PLACEMENT TECHNIQUE: Frontal view of the chest. COMPARISON: Prior study done earlier in the day. FINDINGS: Hardware: A left-sided Thora vent chest tube was placed in the 3rd intercostal space. Stable large left pneumothorax. RAD/Chest 1 View (Portable) IMPRESSION: Stable appearance of the large left pneumothorax. The thoravent tube is seen i n the left 3rd intercostal space. Reading Location: [id number]
--- NOTE | 2024-12-14 15:30 | RAD_ITS ---
EXAM: XR Chest, 1 View CLINICAL INDICATION: CHEST TUBE PLACEMENT TECHNIQUE: Frontal view of the chest. COMPARISON: Earlier today FINDINGS: LUNGS AND PLEURAL SPACES: See below. HEART: Unremarkable. No cardiomegaly. MEDIASTINUM: Unremarkable. Normal mediastinal contour. BONES/JOINTS: Unremarkable. No acute fracture. TUBES, LINES AND DEVICES: Status post chest catheter placement. Improved aeration of the left-sided pneumothorax. RAD/Chest 1 View (Portable) IMPRESSION: Status post chest catheter placement. Improved aeration of the left-sided pneu mothorax. Reading Location: [facility]
--- NOTE | 2024-12-14 16:17 | EDS_ITS ---
HPI History of Present Illness Chief Complaint: Shortness of Breath Informant: patient Narrative Narrative: Patient is a 54-year-old male with history of spontaneous pneumothorax on the left approximately 6 weeks ago presenting for shortness of breath that started yesterday, left-sided discomfort and some dyspnea on exertion today. He had outpatient x-ray today which showed normal complete left-sided pneumothorax. Was instructed to come in by his PCP. States this feels like his prior episode of pneumothorax. Denies any trauma. Notes he feels a little bloated yesterday. No other complaints or concerns at this time. I spoke with Dr. Pickett who had been consulted by his PCP. He states with recurrence of idiopathic complete pneumothorax he likely needs transfer to thoracic surgery because he will likely need some type of VATS procedure. [facility] Medical History Pneumothorax on left Home Medications ?Medication ?Instructions ?Recorded ?Last Taken ?Type NK 11/09/24 Unknown History Allergy/AdvReac Type Severity Reaction Status Date / Time No Known Allergies Allergy Verified 12/14/24 12:08 Surgical History S/P ORIF (open reduction internal fixation) fracture Social History Smoking Status: Former smoker ROS ROS ED Constitutional Constitutional ED: Denies chills or fever(s) Cardiovascular Cardiovascular: Reports chest pain Respiratory/Chest Respiratory/Chest: Reports dyspnea and dyspnea on exertion Gastrointestinal Gastrointestinal: Denies nausea or vomiting Hematologic/Lymphatic Hematologic/Lymphatic: Denies easy bleeding or easy bruising EXAM Physical Exam Const Vital Signs: 12/14/24 12:06 12/14/24 12:22 12/14/24 12:27 Temperature 97.8 F Temperature Source Oral Pulse Rate 85 76 Respiratory Rate 18 23 H Respiratory Effort Short of Breath Respiratory Depth Normal Respiratory Pattern Normal Blood Pressure 167/85 H Blood Pressure Mean 112 Pulse Ox 95 94 Oxygen Delivery Method Room Air Oxygen Flow Rate (L/min) EtCo2 - Document during CPR and with ROSC 12/14/24 12:30 12/14/24 12:45 12/14/24 13:00 Temperature Temperature Source Pulse Rate 71 77 74 Respiratory Rate 22 H 19 H 23 H Respiratory Effort Respiratory Depth Respiratory Pattern Blood Pressure 131/106 H 126/96 H 136/89 H Blood Pressure Mean 116 104 100 Pulse Ox 94 94 94 Oxygen Delivery Method Room Air Room Air Oxygen Flow Rate (L/min) EtCo2 - Document during CPR and with ROSC 12/14/24 13:15 12/14/24 13:30 12/14/24 13:31 Temperature Temperature Source Pulse Rate 77 82 Respiratory Rate 18 19 H Respiratory Effort Respiratory Depth Respiratory Pattern Blood Pressure 134/89 H 128/96 H Blood Pressure Mean 102 107 Pulse Ox 93 93 Oxygen Delivery Method Room Air Oxygen Flow Rate (L/min) EtCo2 - Document during CPR and with ROSC 12/14/24 13:45 12/14/24 14:00 12/14/24 14:15 Temperature Temperature Source Pulse Rate 80 77 73 Respiratory Rate 18 21 H 19 H Respiratory Effort Respiratory Depth Respiratory Pattern Blood Pressure 131/97 H 139/103 H 114/90 H Blood Pressure Mean 108 114 98 Pulse Ox 94 93 92 Oxygen Delivery Method Room Air Room Air Oxygen Flow Rate (L/min) EtCo2 - Document during CPR and with ROSC 12/14/24 14:25 12/14/24 14:26 12/14/24 14:30 Temperature Temperature Source Pulse Rate 74 81 Respiratory Rate 20 H 23 H Respiratory Effort Respiratory Depth Respiratory Pattern Blood Pressure 114/90 H 123/89 H Blood Pressure Mean 98 98 Pulse Ox 93 95 Oxygen Delivery Method Nasal Cannula Oxygen Flow Rate (L/min) 2 EtCo2 - Document during CPR and with ROSC 34 12/14/24 14:36 12/14/24 14:36 12/14/24 14:40 Temperature Temperature Source Pulse Rate 70 72 Respiratory Rate 22 H 28 H Respiratory Effort Respiratory Depth Respiratory Pattern Blood Pressure 111/69 111/69 Blood Pressure Mean 83 83 Pulse Ox 94 91 Oxygen Delivery Method Nasal Cannula Oxygen Flow Rate (L/min) 3 EtCo2 - Document during CPR and with ROSC 12/14/24 14:43 12/14/24 14:45 12/14/24 14:50 Temperature Temperature Source Pulse Rate 78 86 80 Respiratory Rate 30 H 16 21 H Respiratory Effort Respiratory Depth Respiratory Pattern Blood Pressure 105/79 133/80 H Blood Pressure Mean 88 95 Pulse Ox 95 93 92 Oxygen Delivery Method Nasal Cannula Nasal Cannula Oxygen Flow Rate (L/min) 3 2 EtCo2 - Document during CPR and with ROSC 12/14/24 14:55 12/14/24 15:00 12/14/24 15:05 Temperature Temperature Source Pulse Rate 77 75 81 Respiratory Rate 22 H 23 H 21 H Respiratory Effort Respiratory Depth Respiratory Pattern Blood Pressure 140/88 H 125/88 H 133/93 H Blood Pressure Mean 104 99 104 Pulse Ox 94 94 92 Oxygen Delivery Method Oxygen Flow Rate (L/min) EtCo2 - Document during CPR and with ROSC 12/14/24 15:10 12/14/24 15:15 12/14/24 15:20 Temperature Temperature Source Pulse Rate 79 78 Respiratory Rate 24 H 18 Respiratory Effort Respiratory Depth Respiratory Pattern Blood Pressure 134/90 H Blood Pressure Mean 104 Pulse Ox 93 94 Oxygen Delivery Method Oxygen Flow Rate (L/min) EtCo2 - Document during CPR and with ROSC 34 12/14/24 15:23 12/14/24 15:25 12/14/24 15:30 Temperature Temperature Source Pulse Rate 78 80 78 Respiratory Rate 22 H 19 H 21 H Respiratory Effort Respiratory Depth Respiratory Pattern Blood Pressure 120/70 122/80 H 124/70 H Blood Pressure Mean 85 92 84 Pulse Ox 92 93 93 Oxygen Delivery Method Nasal Cannula Oxygen Flow Rate (L/min) 2 EtCo2 - Document during CPR and with ROSC 12/14/24 15:44 12/14/24 15:45 12/14/24 16:00 Temperature Temperature Source Pulse Rate 72 67 Respiratory Rate 25 H 23 H Respiratory Effort Respiratory Depth Respiratory Pattern Blood Pressure 130/77 H Blood Pressure Mean 90 Pulse Ox 97 96 Oxygen Delivery Method Room Air Oxygen Flow Rate (L/min) EtCo2 - Document during CPR and with ROSC 35 Positive well nourished and well developed General Appearance ED: well developed HEENT Reports moist mucous membranes Neck supple and no JVD Chest Wall Chest Narrative: No chest wall tenderness or crepitus appreciated Resp normal respiratory effort Resp Narrative: Significantly diminished/absent breath sounds on the left Auscultation: Negative for rhonchi or wheezes Cardio regular rate and regular rhythm GI non-tender and non-distended Neuro oriented x3 Sensorium / Orientation: alert Motor Exam: Negative for general weakness Psych mental status grossly normal Skin no wounds MDM MDM MDM Narrative Medical decision making narrative: Patient evaluated for shortness of breath and left-sided chest discomfort that started yesterday and outpatient x-ray that showed significant pneumothorax. X- ray reviewed which does show almost complete left-sided pneumothorax. Patient has a history of pneumothorax a little over 1 month ago on 11/09/2024 which was treated with pigtail catheter and was removed the following day by general surgery. Clinically patient does not have any tension physiology. He is not any respiratory distress and does not require needle decompression emergently. Basic lab work is obtained. Parietal EKG obtained apparently because patient had the chest discomfort and this is normal. I suspect his discomfort associated with pneumothorax I do not think he needs troponins. Attempted to place for event catheter however I think the catheter went subcutaneous and there is no improvement of pneumothorax. This was removed and 8 Divehi catheter inserted at the same spot (third intercostal space). Patient has audible woosh when this is placed and clinically is appropriately placed with bubbles in the atrium and condensation in the tubing. Chest x-ray shows slight improvement of pneumothorax after this. Case discussed with Dr. Blake, thoracic surgery at [facility]. He accepts the patient to his service. We are waiting on a bed. Patient remained hemodynamically stable while in the emergency room. He is hooked up to low intermittent suction. Lab Data Attestation: I reviewed the patient's lab results. Labs: Laboratory Results - last 24 hr 12/14/24 12:20 WBC 5.7 RBC 4.99 Hgb 14.1 Hct 42.0 MCV 84.2 MCH 28.3 MCHC 33.6 RDW Std Deviation 41.1 RDW Coeff of Hayden 13.5 Plt Count 254 MPV 9.0 Immature Gran % (Auto) 0.300 Neut % (Auto) 47.6 Lymph % (Auto) 40.6 [place] % (Auto) 8.7 Eos % (Auto) 2.1 Baso % (Auto) 0.7 Absolute Neuts (auto) 2.7 Absolute Lymphs (auto) 2.32 Nucleated RBC % 0 PT 12.6 INR 0.9 APTT 25.4 Sodium 138 Potassium 4.0 Chloride 105 Carbon Dioxide 20.8 L Anion Gap 12 BUN 18 Creatinine 0.79 Estim Creat Clear Calc 136.82 Est GFR (MDRD) Non-Af 104 BUN/Creatinine Ratio 22.5 H Glucose 94 Calcium 9.0 Radiography Chest X-Ray - ED: 1 View, Read by ED Physician, Read by Radiologist and - (Left pneumothorax) Diagnostic Testing: Clinical Impression(s) from Imaging Studies Chest X-Ray 12/14/24 14:50 IMPRESSION: Stable appearance of the large left pneumothorax. The thoravent tube is seen in the left 3rd intercostal space. Reading Location: [id number] Chest X-Ray 12/14/24 15:30 IMPRESSION: Status post chest catheter placement. Improved aeration of the left-sided pneumothorax. Reading Location: [facility] Rhythm Strip Rhythm Strip: Sinus Rhythm Rate: 69 Ectopy: None EKG Initial EKG: Attestation: I personally reviewed and interpreted this EKG as follows: Interpretation: Sinus Rhythm Comments: Normal sinus rhythm rate of 69 bpm Normal axis Normal intervals Normal ST segments Management Discussion w/another healthcare provider: Other (Thoracic surgery, pulmonology) Procedures Other Procedures Procedure(s): Chest tube placement? Patient placed on continuous monitoring. Patient given 2 mg IV Versed for anxiolytic. Area infiltrated with 10 cc of lidocaine with epinephrine 1% for anesthesia of the area. Area cleansed with antiseptic. Initially Thora vent kit used. 11 blade used to make a small incision. Trocar inserted with gentle pressure above the third rib (intercostal space). It was felt to into the pleural space and there was change in the level however there is difficulty advancing the catheter. Patient discomfort. X-ray did not show any improvements postprocedure. This was removed and repeat procedure with traditional pneumothorax kit performed. Patient given additional 2 mg IV Versed and additional 8 cc lidocaine 1% with epinephrine injected into the same spot. Area recleaned with antiseptic wand. 8 Divehi catheter inserted midclavicular line third intercostal space with negative pressure/fluids in the syringe. Once in the pleural space the catheter advanced. When then needle was removed there was an audible woosh. Tubing is hooked up. Catheter secured to the chest wall utilizing 3-0 Ethilon (what was available). Patient tolerated procedure well without any immediate complications. Discharge Plan Triage Chief Complaint: Shortness of Breath ED Provider: Barbara Bassett Dx/Rx/DC Orders Clinical Impression: Recurrent spontaneous pneumothorax Prescriptions: No Action NK Primary Care Provider: Kristie Herndon Referrals: Kristie Herndon MD [Primary Care Provider] - Print Language: Congolese Disposition Disposition: Acute Care Hospital Discharge Location: [facility]
--- NOTE | 2024-12-14 17:11 | ED.RN ---
1700: REPORT CALLED TO [facility] NURSE [facility]. NO FURTHER QUESTIONS BY THE RECEIVING NURSE AT THIS TIME
--- OUTSIDE RECORDS SUMMARY | 2024-12-14 19:21 | XMS RPT_ITS | CCD ---
Author Organization [facility] Care Team Providers Care Coordinating Producer Name Role Phone CAYLA WHITAKER (YANNI) Attending UnavailPORTER Zimmerman Referring Unavailable Perico VUONG, Dr. Madera Attending Provider Perico VUONG, Dr. Madera Emergency Provider Care Physician, No Primary Primary Care Provider Unavailable Yanick VUONG, Dr. Flowers Primary Care Provider [phone] Dr. Kristie Herndon MD Attending Provider Dr. Kristie Herndon MD Referring Provider Dr. Aston Lemos DO Emergency Provider Suzette VUONG, Dr. Callaway Admit Provider Dr. Nilton Bradford MD Attending Provider Suzette VUONG, Dr. Callaway Other Provider Kristie Herndon Primary Care Unavailable Nilton Bradford Attending Unavailable Nilton Bradford Admitting Unavailable Care Physician, No Primary Primary Care Unava ilable [place] Attending Unavailable Nilton Bradford Consulting Unavailable Nilton Bradford Attending Unavailable Nilton Bradford Admitting Unavailable Kristie Herndon Primary Care Unavailable Nilton Bradford Consulting Unavailable Nilton Bradford Attending Unavailable Nilton Bradford Admitting Unavailable Kristie Herndon Primary Care Unavailable Kristie Herndon Primary Care Unavailable Kristie Herndon Attending Unavailable Kristie Herndon Referring Unavailable Medications Current Medications Medication Drug Class(es) Dates Sig (Normalized) Sig (Original) Singac (Nk) (3 sources) Start: 11-09-2024 Singac (Nk) A ctive November 09, 2024 12:00am Completed/Discontinued Medications Medication Drug Class(es) Dates Sig (Normalized) Sig (Original) acetaminophen 300 mg / HYDROcodone bitartrate 5 mg oral tablet (6 sources) Opioid Agonist Start: 08-11-2024 End: 11-09-2024 Hydrocodone-Acetami nophen 5-300 mg tablet Discontinued 1 {tbl} PO Q4H 30 August 11, 2024 November 09, 2024 10:40am Start: 08-11-2024 End: 11-09-2024 Hydrocodone-Acetaminophen 5- 325 mg tablet Discontinued 1 {tbl} PO EVERY 4 HOURS NEEDED as needed for Pain 20 01August 11, 2024 November 09, 2024 10:40am azithromycin 250 mg oral tablet (3 sources) Macrolide Antimicrobial Start: 08-11-2024 End: 11-09-2024 take 2 tablets by mouth once daily Azithromycin (Zithromax) 250 mg tablet Discontinued 250 mg PO DAILY 4 August 11, 2024 1:00am November 09, 2024 10:40am start on day 2 of therapy Problems Active Problems Problem Classification Problem Date Documented Da te Episodic/Chronic Administrative/social admission (3 sources) Patient encounter status; Translations: [Encounter for examination for insurance purposes] 08-19-2024 Episodic E Codes: Fall (3 sources) Fall; Translations: [Unspecified fall, initial encounter] 08-19-2024 Episodic Other fractures (3 sources) Fracture of left rib; Translations: [Fracture of one rib, left side, initial encounter for closed fracture] 08-19-2024 Episodic Other lower respiratory disease (6 sources) Dyspnea; Translations: [Dyspnea, unspecified] 11-09-2024 Episodic Other lower respiratory disease (1 source) Dyspnea, unspecified; Translations: [Dyspnea, unspecified] Onset: 11-15-2024 Episodic Pleurisy; pneumothorax; pulmonary collapse (8 sources) Pneumothorax; Translations: [Pneumothorax, unspecified] Onset: 11-28-2024 11-09-2024 Episodic Pneumonia (except that caused by tuberculosis or sexually transmitted disease) (3 sources) Pneumonia; Translations: [Pneumonia, unspecified organism] 08-19-2024 Episodic Past or Other Problems Problem Classification Problem Date Documented Da te Episodic/Chronic Other fractures (1 source) Fracture of one rib, left side, initial encounter for closed fracture; Translations: [Fracture of one rib, left side, initial encounter for closed fracture] Onset: 08-11-2024 Episodic Results Test Name Value Interpretation Reference Range Facility Chest 1 View (Portable)on Chest 1 View (Portable) [facility] Imaging Services [address] [place] [address] Chest 1 View (Portable) MR#: [id number] Acct: [id number] Name: YAIR JONES Rep #: [id number] : 1970 M 54 From: Reji Matos PCP: Dr. Kristie Herndon MD Status: ADM IN Study: Chest 1 View (Portable) Date of Exam: 11/11/24 Exam# [id number] Ordering Dr: Nilton Bradford MD PROCEDURE: CHEST 1 VIEW (PORTABLE) 11/11/2024 REASON FOR EXAM: F/U CHEST TUBE REMOVAL TECHNIQUE: Frontal view of the chest. COMPARISON: 11/11/2024 FINDINGS: No focal consolidations. Interval removal of left chest tube without sizable pneumothorax. No pleural effusions. Cardiac silhouette is unchanged. No acute fractures RAD/Chest 1 View (Portable) IMPRESSION: Interval removal of left chest tube without sizable pneumothorax. Reading Location: [facility] CC: Dr. Kristie Herndon MD; Dr. Nilton Bradford MD Loan Assistant: Signed Normal [facility] Chest 1 View (Portable) [facility] Imaging Services [address] [place] [address] Chest 1 View (Portable) MR#: [id number] Acct: [id number] Name: YAIR JONES Rep #: [id number] : 1970 M 54 From: Wenceslao napier MD PCP: Dr. Kristie Herndon MD Status: ADM IN Study: Chest 1 View (Portable) Date of Exam: 11/11/24 Exam# [id number] Ordering Dr: Nilton Bradford MD PROCEDURE: CHEST 1 VIEW (PORTABLE) 11/11/2024 REASON FOR EXAM: F/U L PTX AND CT TECHNIQUE: Frontal view of the chest. COMPARISON: 11/10/2024. FINDINGS: Left pleural drain is again noted with its tip in the apex of the left pleural cavity. No residual or recurrent pneumothorax is seen. The lungs are expanded. There is no demonstrated parenchymal abnormality. There is no demonstrated pleural abnormality. Normal heart and pericardium. Normal mediastinum and chadwick. Normal visualized pulmonary arteries. Normal visualized aortic arch and descending thoracic aorta. Diffuse spondylosis of the visualized thoracic spine. Normal visualized ribs, clavicles, and shoulders. There is no demonstrated abnormality of the visualized soft tissue structures of the upper abdomen. RAD/Chest 1 View (Portable) IMPRESSION: Left pleural drain is in good position. No residual or recurrent pneumothorax. Reading Location: [place] [address] CC: Dr. Kristie Herndon MD; Dr. Nilton Bradford MD Loan Assistant: Signed Normal [facility] Discharge Instructionon 11-01 Discharge Instruction [facility] Medical Records Department [address] [place] [address] Instructions for Home/Discharge Instructions 11/11/24 1330 MR#: [id number] Acct: [id number] Name: YAIR JONES Rep #: [id number] : 1970 54 From: Nilton Bradford MD PCP: Dr. Kristie Herndon MD Status:ADM IN Discharge Instructions Diet Discharge Diet: No restrictions DC O2, CPAP, BIPAP needs Home O2 Discharge instructions: No Dressing / Incision Discharge Activity: May Not Shower (Recommend sponge baths only until chest tube dressing is discontinued in 48 hours) Additional Activity Instructions:: Keep to nonexertional activity following hospital discharge Dressing / Incision Call your doctor if your incision/area has: Increased Redness and Swelling at the incision site Call your doctor if you observe: Shortness of breath, Chest pain and Uncontrolled pain Remove Dressing in: 2 days Follow Up Care Please Follow Up With: Kristie Herndon MD When: 2 weeks posthospital discharge Test Results: Test results from this visit will be discussed in further detail at your follow-up appointment, if applicable. Discharge Plan Admission Admit Date/Time: 11/10/24 13:55 Primary Reason for Your Visit: Left-sided pneumothorax Attending Provider: Nilton Bradford Primary Care Provider: Kristie Herndon Instructions Additional Instructions / Restrictions: Patient should notify PCP about nocturnal hypoxia and consider obtaining formal sleep study Discharge Orders/Prescriptions Prescriptions: No Action NK Referrals / Follow Up: Kristie Herndon MD [Primary Care Provider] - Disposition Disposition (needs filled in before D/C Order can be placed): Home, Self Care 11/11/24 1513 Nilton Bradford MD CC: Dr. Kristie Herndon MD Signed [facility] Chest 1 View (Portable)on Chest 1 View (Portable) [facility] Imaging Services [address] [place], [place] [id number] Chest 1 View (Portable) MR#: [id number] Acct: [id number] Name: YAIR JONES Rep #: [id number] : 1970 M 54 From: Torres Friedman MD PCP: Dr. Kristie Herndon MD Status: ADM TED Study: Chest 1 View (Portable) Date of Exam: 11/10/24 Exam# [id number] Ordering Dr: Nilton Bradford MD PROCEDURE: CHEST 1 VIEW (PORTABLE) 11/10/2024 REASON FOR EXAM: FOLLOW-UP LEFT PNEUMOTHORAX TECHNIQUE: Frontal view of the chest. 2 images to include the entire chest COMPARISON: 11/09/2024 FINDINGS: Small caliber left chest tube again noted with tip extending to the medial left apex. There is now some bending of the tube. No pneumothorax or pleural effusion identified. The lungs appear clear. The cardiac and mediastinal contours appear within limits. Right shoulder degenerative changes again noted. RAD/Chest 1 View (Portable) IMPRESSION: Small caliber left chest tube again noted with tip extending to the medial left apex. There is now some bending of the tube. No pneumothorax or pleural effusion identified. Reading Location: [facility] CC: Dr. Kristie Herndon MD; Dr. Nilton Bradford MD Loan Assistant: Signed [facility] Chest 1 View (Portable)on Chest 1 View (Portable) [facility] Imaging Services [address] [place], [place] [id number] Chest 1 View (Portable) MR#: [id number] Acct: [id number] Name: YAIR JONES Rep #: [id number] : 1970 M 54 From: Tyler moody MD PCP: Dr. Kristie Herndon MD Status: REG ER Study: Chest 1 View (Portable) Date of Exam: 11/09/24 Exam# [id number] Ordering Dr: Aston Lemos DO PROCEDURE: CHEST 1 VIEW (PORTABLE) 11/09/2024 REASON FOR EXAM: CHEST TUBE PLACEMENT TECHNIQUE: Frontal view of the chest. COMPARISON: 11/10/2019 FINDINGS: Hardware: Left upper lobe chest tube. Heart: Cardiac and mediastinal contours are stable. Lungs: Linear opacity left mid lung zone, compatible with atelectasis. No pneumothorax. No pleural effusion. Bones: The bones are unremarkable. Other: RAD/Chest 1 View (Portable) IMPRESSION: No Acute Findings. Reading Location: [facility] CC: Dr. Aston Lemos DO; Dr. Kristie Herndon MD Loan Assistant: Signed [facility] Chest 1 View (Portable) [facility] Imaging Services [address] [place], [place] [address] Chest 1 View (Portable) MR#: [id number] Acct: [id number] Name: YAIR JONES Rep #: [id number] : 1970 M 54 From: Aston Argueta MD PCP: Dr. Kristie Herndon MD Status: REG ER Study: Chest 1 View (Portable) Date of Exam: 11/09/24 Exam# [id number] Ordering Dr: Aston Lemos DO PROCEDURE: CHEST 1 VIEW (PORTABLE) 11/09/2024 REASON FOR EXAM: PNEUMOTHORAX Check chest tube placement. Follow-up lateral. TECHNIQUE: Frontal view of the chest. COMPARISON: Earlier study dated 11/09/2024 FINDINGS: A left chest tube is in place. No other significant findings. RAD/Chest 1 View (Portable) IMPRESSION: Left chest tube is in place. Reading Location: [facility] CC: Dr. Aston Lemos DO; Dr. Kristie Herndon MD Loan Assistant: Signed [facility] Chest 1 View (Portable) [facility] Imaging Services [address] [place], [place] [address] Chest 1 View (Portable) MR#: [id number] Acct: [id number] Name: FORDYAIR Rep #: [id number] : 1970 M 54 From: Alex Reyes MD PCP: Dr. Kristie Herndon MD Status: REG ER Study: Chest 1 View (Portable) Date of Exam: 11/09/24 Exam# [id number] Ordering Dr: Aston Lemos DO EXAM: XR Chest, 1 View CLINICAL INDICATION: PNEUMOTHORAX TECHNIQUE: Frontal view of the chest. COMPARISON: Earlier today FINDINGS: LUNGS AND PLEURAL SPACES: Persistent left-sided pneumothorax, unchanged. Clinical correlation is recommended. HEART: Unremarkable. No cardiomegaly. MEDIASTINUM: Unremarkable. Normal mediastinal contour. BONES/JOINTS: Unremarkable. No acute fracture. TUBES, LINES AND DEVICES: Left-sided chest tube catheter unchanged. RAD/Chest 1 View (Portable) IMPRESSION: Persistent left-sided pneumothorax, unchanged. Clinical correlation is recommended. Reading Location: [facility] CC: Dr. Aston Lemos DO; Dr. Kristie Herndon MD Loan Assistant: Signed [facility] Chest 1 View (Portable) [facility] Imaging Services [address] [place] [address] Chest 1 View (Portable) MR#: [id number] Acct: [id number] Name: YAIR JONES Rep #: [id number] : 1970 M 54 From: Alex Reyes MD PCP: Dr. Kristie Herndon MD Status: REG ER Study: Chest 1 View (Portable) Date of Exam: 11/09/24 Exam# [id number] Ordering Dr: Aston Lemos DO EXAM: XR Chest, 1 View CLINICAL INDICATION: CHEST TUBE PLACEMENT TECHNIQUE: Frontal view of the chest. COMPARISON: Earlier today FINDINGS: LUNGS AND PLEURAL SPACES: See below. HEART: Unremarkable. No cardiomegaly. MEDIASTINUM: Unremarkable. Normal mediastinal contour. BONES/JOINTS: Unremarkable. No acute fracture. TUBES, LINES AND DEVICES: Chest tube catheter placed in the left upper lung field. Persistent pneumothorax. Clinical correlation is recommended. RAD/Chest 1 View (Portable) IMPRESSION: Chest tube catheter placed in the left upper lung field. Persistent pneumothorax. Clinical correlation is recommended. Reading Location: [facility] CC: Dr. Aston Lemos DO; Dr. Kristie Herndon MD Loan Assistant: Signed [facility] Chest PA and Lateralon 11-09 [address] L[address] [facility] Imaging Services [address] [place] [id number] Chest PA and Lateral MR#: [id number] Acct: [id number] Name: YAIR JONES Rep #: [id number] : 1970 M 54 From: Aston Argueta MD PCP: Dr. Kristie Herndon MD Status: REG CLI Study: Chest PA and Lateral Date of Exam: 11/09/24 Exam# [id number] Ordering Dr: Kristie Herndon MD PROCEDURE: CHEST PA AND LATERAL 11/09/2024 REASON FOR EXAM: SOB, DYSPNEA TECHNIQUE: Frontal and lateral views of the chest. COMPARISON: CT chest dated 08/11/2024 FINDINGS: Lungs: A total left lung pneumothorax. Pleura: No pleural effusions, thickening, or pneumothorax. Heart: Normal in size and configuration. Suspicion of mild pneumopericardium and/or pneumomediastinum. Mediastinum/Chadwick: Mild rightward shift of the mediastinum. Great vessels: Unremarkable. Bones/soft tissues: Unremarkable. RAD/Chest PA and Lateral IMPRESSION: Right tension pneumothorax with total collapse of the left lung. Suspicion of mild pneumopericardium and/or pneumomediastinum. Findings were relayed to the ED physician at 1020 hours. Reading Location: [facility] CC: Dr. Kristie Herndon MD Loan Assistant: Signed [facility] Emergency Department Summary on 11-09-2024 Emergency Department Summary [facility] Medical Records Department [address] [place] [address] Emergency Department Summary 11/09/24 MR#: [id number] Acct: [id number] Name: YAIR JONES Rep #: [id number] : 1970 54 From: Aston Lemos DO PCP: Dr. Kristie Herndon MD Status:[facility] ER Location: ED HPI History of Present Illness Chief Complaint: Shortness of Breath Onset/Context/Timing Onset: Weeks (1.5) Context: gradual Timing: Continuous Quality: Positive for Dyspnea on exertion Worsened by: Exertion Relieved by: Rest Associated Symptoms Negative for cough, rhinorrhea, post nasal drip, ear pain, fever, sore throat, chills, sweats, clear sputum, white sputum, yellow sputum or green sputum Chest Pain: Positive for None Narrative Narrative: Patient presents with shortness of breath that has been worse for the past week and a half patient states it is gradually gotten worse. Patient states his breathing is worse with any exertion. Patient states it is better with rest. Patient denies any cough or fevers. Patient went to his primary care physician today who ordered an outpatient chest x-ray. This was interpreted by the radiologist as a complete pneumothorax on the left. Patient was then referred to the emergency department. PE Risk Factors: Negative for Cancer, OCP + Smoking + > 35, Prior DVT or PE, Recent immobilization, Recent surgery or Recent travel PFSH PFS Home Medications ???Medication ???Instructions ???Recorded ???Last Taken ???Type NK 11/09/24 Unknown History Allergy/AdvReac Type Severity Reaction Status Date / Time No Known Allergies Allergy Verified 11/09/24 10:40 Surgical History (Updated 11/09/24 @ 11:[address] Aston Lemos DO) S/P ORIF (open reduction internal fixation) fracture Social History Smoking Status: Former smoker ROS ROS ED Constitutional Constitutional ED: Denies chills or fever(s) Eyes Eyes: Denies blurry vision or change in vision ENT ENT ED: Denies rhinorrhea or sore throat Cardiovascular Cardiovascular: Denies chest pain or palpitations Respiratory/Chest Respiratory/Chest: Reports dyspnea; Denies cough Gastrointestinal Gastrointestinal: Denies nausea or vomiting Genitourinary Genitourinary ED: Denies dysuria or hematuria Musculoskeletal Musculoskeletal: Denies back pain or neck pain Integumentary Denies abscess or rash Neurologic Neurologic: Denies headache(s) or weakness Allergic/Immunologic Allergic/Immunologic ED: Denies mouth swelling or urticaria EXAM Physical Exam Const Vital Signs: 11/09/24 10:20 11/09/24 10:30 11/09/24 11:20 Temperature 97.6 F L Temperature Source Temporal Pulse Rate 73 46 L Respiratory Rate 19 H 29 H Respiratory Effort Short of Breath Respiratory Depth Shallow Blood Pressure 156/98 H 128/77 H Blood Pressure Mean 117 94 Pulse Ox 95 98 Oxygen Delivery Method Room Air Room Air Room Air 11/09/24 12:00 11/09/24 13:00 11/09/24 14:00 Temperature Temperature Source Pulse Rate 76 78 67 Respiratory Rate 20 H 19 H 20 H Respiratory Effort Respiratory Depth Blood Pressure 112/85 H 145/80 H 151/98 H Blood Pressure Mean 94 101 115 Pulse Ox 92 94 98 Oxygen Delivery Method Room Air 11/09/24 15:00 11/09/24 16:19 Temperature Temperature Source Pulse Rate 78 64 Respiratory Rate 20 H Respiratory Effort Respiratory Depth Blood Pressure 130/90 H 121/69 H Blood Pressure Mean 103 86 Pulse Ox 94 Oxygen Delivery Method Positive well nourished and well developed Constitutional Narrative: BMI is 34.0 General Appearance ED: well developed and NAD HEENT Reports moist mucous membranes Neck no lymphadenopathy, supple, no meningeal signs and no JVD Neck Narrative: Trachea is midline. Resp normal respiratory effort Auscultation: diminished lung sounds left Cardio regular rate and regular rhythm GI non-tender and non-distended Palpation: soft Neuro oriented x3, CN's II-XII intact bilaterally and no sensory deficits noted Samara Coma Scale: document GCS findings Spontaneous Obeys Commands Oriented 15 Sensorium / Orientation: alert Speech: speech normal Motor Exam: strength 5/5 throughout MDM MDM MDM Narrative Medical decision making narrative: Patient was advised of his x-ray findings. Patient was advised of the need for chest tube placement. Patient was advised of the risks and benefits of chest tube placement. Patient is agreeable to proceed with chest tube placement. All questions were answered. Radiography Diagnostic Testing: Clinical Impression(s) from Imaging Studies Chest X-Ray 11/09/24 11:50 IMPRESSION: Chest tube catheter placed in the left upper lung field. Persistent (more content not included)... [facility] Abdomen/Pelvis W IV Cont ONL Yon 08-11-2024 Abdomen/Pelvis W IV Cont ONLY [facility] Imaging Services [address] [place], [place] [id number] Abdomen/Pelvis W IV Cont ONLY MR#: [id number] Acct: [id number] Name: YAIR JONES Rep #: [id number] : 1970 M 54 From: Nima Curtis MD PCP: Care Physician,No Primary Status: REG ER Study: Abdomen/Pelvis W IV Cont ONLY Date of Exam: Exam# [id number] Ordering Dr: Santy River MD PROCEDURE: ABDOMEN/PELVIS W IV CONT ONLY REASON FOR EXAM: Trauma TECHNIQUE: Abdomen and pelvis CT with intravenous contrast. COMPARISON: None. FINDINGS: CT chest dictated separately. Liver: Unremarkable. Gallbladder: Unremarkable. Spleen: Unremarkable. Pancreas: Unremarkable. Adrenals: Unremarkable. Kidneys: Unremarkable. Bladder: Unremarkable. Reproductive Organs: Left-sided inguinal hernia containing a portion of the bladder.. Bowel: Unremarkable. Appendix: Normal. Lymph nodes: No suspicious lymph node enlargement. Vasculature: Major vascular structures are unremarkable. Peritoneum / Retroperitoneum: No ascites. No free air. Bones: Unremarkable. CT/Abdomen/Pelvis W IV Cont ONLY IMPRESSION: Left-sided inguinal hernia containing fat and a portion of the bladder. No other acute process in the abdomen or pelvis. One or more dose reduction techniques were used (e.g., Automated exposure control, adjustment of the mA and/or kV according to patient size, use of iterative reconstruction technique). Reading Location: [facility] CC: Dr. Santy River MD; No Primary Care Physician Loan Assistant: Signed [facility] Chest without Contraston Chest without Contrast [facility] Imaging Services [address] [place] [address] Chest without Contrast MR#: [id number] Acct: [id number] Name: YAIR JONES Rep #: [id number] : 1970 M 54 From: Nima Curtis MD PCP: Care Physician,No Primary Status: REG ER Study: Chest without Contrast Date of Exam: 08/11/24 Exam# [id number] Ordering Dr: Santy River MD PROCEDURE: CHEST WITHOUT CONTRAST REASON FOR EXAM: Trauma TECHNIQUE: Chest CT without contrast. COMPARISON: None. FINDINGS: Hardware: None. Lymph nodes: No mediastinal hilar or axillary lymphadenopathy. Heart and Vasculature: Normal heart size. No pericardial effusion. Thoracic aorta and pulmonary arteries have normal contours; noncontrast technique limits evaluation. Coronary Artery Calcifications: Cystic lesion medially left hemithorax measuring up to 3.4 cm. Intrapulmonary cyst is suggested. Localized tiny pneumothorax can not be entirely excluded. Butler consolidation in the right lower lobe with air bronchograms are seen. CT abdomen pelvis dictated separately. Minimally displaced anterolateral left 7th rib fracture CT/Chest without Contrast IMPRESSION: Cystic lesion medially left hemithorax measuring up to 3.4 cm. Intrapulmonary cyst is suggested. Localized tiny pneumothorax cannot be entirely excluded. Confluent pneumonia in the right lower lobe. Minimally displaced anterolateral left 7th rib fracture. One or more dose reduction techniques were used (e.g., Automated exposure control, adjustment of the mA and/or kV according to patient size, use of iterative reconstruction technique). Reading Location: [facility] CC: Dr. Santy River MD; No Primary Care Physician Loan Assistant: Signed [facility] Emergency Department Summary on 08-11-2024 Emergency Department Summary [facility] Medical Records Department [address] [place] [address] Emergency Department Summary 08/11/24 MR#: [id number] Acct: [id number] Name: YAIR JONES Rep #: [id number] : 1970 54 From: Santy River MD PCP: Care Physician,No Primary Status:REG ER Location: ED HPI HPI - Fall History of Present Illness Chief Complaint: Fall Detail of Chief Complaint: Fell 7 feet to the ground at work on Tuesday. Informant: patient and spouse/S.O. Occured/Mechanism Occurred: Yesterday Narrative: Fell 78 feet to the ground at work yesterday. Complaining primarily left rib cage pain. Pain/Injury Pain Location: chest (Left rib cage pain.) Quality of Pain: Sharp Current Severity: 01/10 Maximum Severity: Moderate Narrative Narrative: Healthy 54-year-old male was at work yesterday was about 78 feet off the ground and a plank broke fell to the ground injuring his left rib cage. Said he did not hit his head. Denies any head or neck pain. Denies any back pain. He is concerned with his left lateral rib cage. She also hit his hip but he said it feels fine has been able to walk. No LOC. No headache. Prior similar symptoms: No Recent Illness/Hospitalization : No PFSH PFSH Medical History no medical history no medical history Home Medications ???Medication ???Instructions ???Recorded ???Last Taken ???Type azithromycin 250 mg tablet 250 mg PO DAILY 4 days #4 tabs 02/25 Unknown Rx (Zithromax) hydrocodone 5 mg-acetaminophen 300 1 tab PO Q4H 7 days #30 tabs 02/25 Unknown Rx mg tablet Allergy/AdvReac Type Severity Reaction Status Date / Time No Known Allergies Allergy Verified 08/11/24 11:30 Family History no significant family his Surgical History no surgical history Social History Smoking Status: Former smoker ROS ROS ED ROS Narrative Recent fever. Believes he may have a viral syndrome. Constitutional Constitutional ED: Reports fever(s) Eyes Eyes: Denies blurry vision ENT ENT ED: Denies ear pain Cardiovascular Cardiovascular: Reports other Details: Left rib pain post fall. Respiratory/Chest Respiratory/Chest: Denies dyspnea Gastrointestinal Gastrointestinal: Denies abdominal pain Genitourinary Genitourinary ED: Denies dysuria or hematuria Musculoskeletal Musculoskeletal: Denies arthralgias Integumentary Denies abscess Neurologic Neurologic: Denies headache(s) Psychiatric Psychiatric: Denies anxiety or depression Endocrine Endocrinology: Denies polydipsia, polyphagia or polyuria Hematologic/Lymphatic Hematologic/Lymphatic: Denies easy bleeding, easy bruising, lymphadenopathy or other Allergic/Immunologic Allergic/Immunologic ED: Denies mouth swelling, tongue swelling or urticaria EXAM Physical Exam Narrative Exam Narrative: 54-year-old male sitting upright in bed. Vital signs are stable afebrile. and son in the room. Pulse ox 94% on room air no signs hypoxia. He is in no distress. H EENT exam pupils round reactive light. Extra motions are intact. No trauma to his face nor tenderness. No swelling or bruising. Scalp nontender. Moist mucous membranes. Posterior pharynx unremarkable. Neck nontender. Trachea midline. Normal flexion extension and rotation of his neck. Back and spine nontender. No bruising. No signs of trauma. Lungs clear to auscultation bilaterally. Heart tachycardic 103 no murmur. Sternum and right chest nontender. Left lateral ribs tender to palpation. No crepitance or subcu air. No bruising. Abdomen soft nondistended normal bowel sounds no peritoneal signs. When you push in his left flank area he complains of rib cage pain. Pelvic girdle intact. Moving all 4 extremities. Normal flexion extension of both hips and knees dorsi and plantarflexion. The left hip is nontender. He has normal range of motion. There is no shortening or rotation. Neurologically he is awake and alert no focal motor deficits. GCS 15. Answering questions and following commands. Const Vital Signs: 08/11/24 09:05 08/11/24 11:05 08/11/24 13:11 Temperature 97.7 F L Temperature Source Temporal Pulse Rate 103 H 72 Respiratory Rate 20 H Blood Pressure 137/71 H 127/62 H 123/71 H Blood Pressure Mean 93 83 88 Pulse Ox 94 91 Oxygen Delivery Method Room Air Room Air Positive well nourished and well developed; Negative for cachectic, contractures or unkempt General Appearance ED: well developed and NAD; Negative for unkempt, cachectic or contractures Nutritional Appearance: Negative for cachectic HEENT Reports normocephalic atraumatic; Negative for trauma, contusion, hematoma or tenderness Eyes PERRL and EOMs intact bilaterally Neck full ROM, no lymphadenopathy and supple Chest Wall inspection of chest normal; Neg (more content not included)... Normal [facility] CNOVon 10-16-2018 CNOV Office Visit (ORTHWS ) YAIR JONES ([id number]) 1970 M Date Time Provider Department 10/16/18 8:30 AM CAYLA WHITAKER) [facility] During your visit today, we recorded the following information about you: Pulse Blood pressure Weight Height 71/minute 114/69 100.8 kg 1.829 m Cherie Gustafson Vinh 10/16/2018 11:26 AM Signed Patient presents with: New Patient: Lesion left 5th finger - Ref. Rhiannon AMB ROOMING INTAKE FLOWSHEET DATA Risk Screening Do you have concerns about personal safety or safety in the home?: No Pain Pain Level: 2 Pain Location: (Left 5th finger) Description: Sharp Duration Amount of Time: 6 Duration Units: Weeks Frequency: Intermittent Intervention: Medication Patient states about 6 weeks ago he thinks his left 5th finger may have gotten kaufman bite. No specific injury. Denies any drainage. He had some redness on the tip of his finger and has been getting worse. States he does have a history of carpal tunnel. Patient is right hand dominant. 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 States when his finger gets bumped is is painful. The cold weather bothers it. Referred by Dr. Jurado. Has been continuing to take antibiotic. Cayla Whitaker PA-C 10/16/2018 11:26 AM Signed Cayla Whitaker PA-C Department of Orthopaedics Orthopaedics [address] [facility] [address] Dept: [phone] Dept October 16, 2018 CHIEF COMPLAINT: New Patient (Lesion left 5th finger - Ref. Rhiannon) HPI: Mr. Yair Jones is a 48 year old male. He presents with sharp 2 out of 10 and intermittent pain at the tip of his left fifth digit. About 6 weeks ago he was outside working and it was very cold. His entire pinky digit felt numb and painful. Following the incident he describes a large blister at the tip of the digit. He debrided the blister and soaking the digits in epsom salts. He was seen by Dr. Jurado who started him on oral antibiotic, the patient states that the antibiotic is giving him some GI upset. Since the incident he has had some numbness, increased pain with exposure to cold and darkening of the skin at the tip of his left pinky digit. 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 He denies injury to the digit. ASSESSMENT: T33.90XD Frostbite, subsequent encounter (primary encounter diagnosis) I96 Gangrene of finger (HCC) PLAN: Patient has a gangrenous area at the very tip of his left pinky digit. We discussed keeping a watchful eye on the area. We also discussed surgical debridement. The patient would like to watch the area and see if it happens to improve. We discussed that if the digit becomes infected or does not show improvement he will likely need to proceed with a surgical debridement. Patient agrees. FOLLOW UP INSTRUCTIONS: In 2 weeks. Mr. Yair Jones was advised as to contrast therapies and/or to take analgesics/anti-inflamm atories as needed and all contraindications were reviewed. OBJECTIVE: Mr. Yair Jones is a pleasant 48 year old in no apparent distress. Gen:BP 114/69 Pulse 71 Ht 6' 0 (1.83m) Wt 222 lb 3.2 oz (100.8kg) BMI 30.13 kg/(m2). wnl development, non obese, no deformities ENT: Normocephalic, normal hearing, moist mucosa CV: Pulses:Radial= 2+ and symmetric, capillary refill < 2 secs, no peripheral edema/varicosities Skin: no rash, bruising or lesions. Good turgor. Psych: cooperative and appropriate, alert and oriented x 3, good mood and affect. Musculoskeletal: Left pinky digits with a firmness to palpation at the pad of the digit. Very distal portion of the nailbed is blackened, the nail is slightly lifted. No erythema or drainage is noted. The patient has full and active range of motion at the left pinky MCP, PIP and DIP joint. Subjective numbness at the very distal portion of the finger pad. IMAGING: defered today Supporting Subjective Information Below: Past Medical History: PAST MEDICAL HISTORY Diagnosis Date - Carpal tunnel syndrome Past Surgical History: PAST SURGICAL HISTORY Procedure Laterality Date - KNEE SURGERY HX Right pin right leg after Fx Family History: FAMILY HISTORY Problem Relation Age of Onset - None Mother - Heart Attack Father at age 69 of [place] Social History:Social History Socioeconomic History Marital status: Spouse name: Not on file Number of children: Not on file Years of education: Not on file Highest education level: Not on file Social Needs Financial resource strain: Not on file Food insecurity - worry: Not on file Food insecurity - inability: Not on file Transportation needs - medical: Not on file Transportation needs - non-medical: Not on file Occupational History Not on file Tobacco Use Smoking status: Never Smoker Smokeless tobacco: Never Used Substance and Sexual Activity Alcohol use: No Drug use: No Sexual activity: Yes Other Topics Concerns: Not on file Social History Narrative Not on file Medications: Current Outpatient Medications: amoxicillin-clavulanic acid (AUGMENTIN) 875-125 mg per tablet Take 1 tablet by mouth twice daily for 7 days. No current facility-administered medications for this visit. Allergies: Patient has no known allergies. ROS: General (negative for fatigue, malaise, weight loss/gain) HEENT (negative for headache, earache, recent vision changes, sinus pain, sore throat) Respiratory (no recent shortness of breath, hemoptysis) CV (negative for chest tightness, palpitations) Musculoskeletal (see HPI) Psych (no depression, anxiety) REFERRING PHYSICIAN: Mr. Yair Jones was referred to me for consultation by the following physician. This consultation note will be sent to the following physician by either mail or electronic medical record. Porter Jurado MD [address] [facility] [address] No primary care provider on file. No primary provider on file. This note was partially generated using [employer] voice recognition system, and there may be some incorrect words, spellings, and punctuation that were not noted in checking the note before saving. Cayla Whitaker PA-C Referring Provider: PORTER JURADO [[id number]] Allergies As of Date: 10/16/2018 (No Known Allergies) Date Reviewed: 10/16/2018 Reviewed by: Cayla Whitaker (Pa) - Fully Assessed Reason for Visit: New Patient [172] Cmt: Lesion left 5th finger - Ref. Rhiannon Primary Visit Diagnosis:Frostbite, subsequent encounter [T33.90XD] Other Visit Diagnosis:Gangrene of finger (HCC) [I96] Prescriptions as of 10/16/2018 Sig: AMOXICILLIN 875 MG-POTASSIUM * Take 1 tablet by mouth twice * Problem List As Of Date: 10/16/2018 (None) Encounter Status:Closed by CAYLA WHITAKER PA-C on 10/16/18 Normal [facility] PROGRESSon 10-16-2018 Protein mass conc HNO ID: [id number] Author: Cayla Whitaker (Pa) Service: ? Author Type: Physician Senior Electrical Project Manager Type: Progress Notes Filed: 10/16/2018 11:26 AM Note Text: Cayla Whitaker PA-C Department of Orthopaedics Orthopaedics [address] [facility] [address] Dept: [phone] Dept October 16, 2018 CHIEF COMPLAINT: New Patient (Lesion left 5th finger - Ref. Rhiannon) HPI: Mr. Yair Jones is a 48 year old male. He presents with sharp 2 out of 10 and intermittent pain at the tip of his left fifth digit. About 6 weeks ago he was outside working and it was very cold. His entire pinky digit felt numb and painful. Following the incident he describes a large blister at the tip of the digit. He debrided the blister and soaking the digits in epsom salts. He was seen by Dr. Jurado who started him on oral antibiotic, the patient states that the antibiotic is giving him some GI upset. Since the incident he has had some numbness, increased pain with exposure to cold and darkening of the skin at the tip of his left pinky digit. 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 He denies injury to the digit. ASSESSMENT: T33.90XD Frostbite, subsequent encounter (primary encounter diagnosis) I96 Gangrene of finger (HCC) PLAN: Patient has a gangrenous area at the very tip of his left pinky digit. We discussed keeping a watchful eye on the area. We also discussed surgical debridement. The patient would like to watch the area and see if it happens to improve. We discussed that if the digit becomes infected or does not show improvement he will likely need to proceed with a surgical debridement. Patient agrees. FOLLOW UP INSTRUCTIONS: In 2 weeks. Mr. Yair Jones was advised as to contrast therapies and/or to take analgesics/anti-inflamm atories as needed and all contraindications were reviewed. OBJECTIVE: Mr. Yair Jones is a pleasant 48 year old in no apparent distress. Gen:BP 114/69 Pulse 71 Ht 6' 0 (1.83m) Wt 222 lb 3.2 oz (100.8kg) BMI 30.13 kg/(m2). wnl development, non obese, no deformities ENT: Normocephalic, normal hearing, moist mucosa CV: Pulses:Radial= 2+ and symmetric, capillary refill < 2 secs, no peripheral edema/varicosities Skin: no rash, bruising or lesions. Good turgor. Psych: cooperative and appropriate, alert and oriented x 3, good mood and affect. Musculoskeletal: Left pinky digits with a firmness to palpation at the pad of the digit. Very distal portion of the nailbed is blackened, the nail is slightly lifted. No erythema or drainage is noted. The patient has full and active range of motion at the left pinky MCP, PIP and DIP joint. Subjective numbness at the very distal portion of the finger pad. IMAGING: defered today Supporting Subjective Information Below: Past Medical History: PAST MEDICAL HISTORY Diagnosis Date - Carpal tunnel syndrome Past Surgical History: PAST SURGICAL HISTORY Procedure Laterality Date - KNEE SURGERY HX Right pin right leg after Fx Family History: FAMILY HISTORY Problem Relation Age of Onset - None Mother - Heart Attack Father at age 69 [place] Social History:Social History Socioeconomic History Marital status: Spouse name: Not on file Number of children: Not on file Years of education: Not on file Highest education level: Not on file Social Needs Financial resource strain: Not on file Food insecurity - worry: Not on file Food insecurity - inability: Not on file Transportation needs - medical: Not on file Transportation needs - non-medical: Not on file Occupational History Not on file Tobacco Use Smoking status: Never Smoker Smokeless tobacco: Never Used Substance and Sexual Activity Alcohol use: No Drug use: No Sexual activity: Yes Other Topics Concerns: Not on file Social History Narrative Not on file Medications: Current Outpatient Medications: amoxicillin-clavulanic acid (AUGMENTIN) 875-125 mg per tablet Take 1 tablet by mouth twice daily for 7 days. No current facility-administered medications for this visit. Allergies: Patient has no known allergies. ROS: General (negative for fatigue, malaise, weight loss/gain) HEENT (negative for headache, earache, recent vision changes, sinus pain, sore throat) Respiratory (no recent shortness of breath, hemoptysis) CV (negative for chest tightness, palpitations) Musculoskeletal (see HPI) Psych (no depression, anxiety) REFERRING PHYSICIAN: Mr. Yair Jones was referred to me for consultation by the following physician. This consultation note will be sent to the following physician by either mail or electronic medical record. Porter Jurado MD [address] [facility] [address] No primary care provider on file. No primary provider on file. This note was partially generated using [employer] voice recognition system, and there may be some incorrect words, spellings, and punctuation that were not noted in checking the note before saving. Cayla Whitaker PA-C Normal [facility] Protein mass conc HNO ID: [id number] Author: Cherie Gustafson Ma Service: ? Author Type: ? Type: Progress Notes Filed: 10/16/2018 11:26 AM Note Text: Patient presents with: New Patient: Lesion left 5th finger - Ref. Rhiannon AMB ROOMING INTAKE FLOWSHEET DATA Risk Screening Do you have concerns about personal safety or safety in the home?: No Pain Pain Level: 2 Pain Location: (Left 5th finger) Description: Sharp Duration Amount of Time: 6 Duration Units: Weeks Frequency: Intermittent Intervention: Medication Patient states about 6 weeks ago he thinks his left 5th finger may have gotten kaufman bite. No specific injury. Denies any drainage. He had some redness on the tip of his finger and has been getting worse. States he does have a history of carpal tunnel. Patient is right hand dominant. 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 States when his finger gets bumped is is painful. The cold weather bothers it. Referred by Dr. Jurado. Has been continuing to take antibiotic. Normal [facility] CNOVon 10-11-2018 CNOV Office Visit (UCWSTR ) YAIR JONES ([id number]) 1970 M Date Time Provider Department 10/11/18 8:00 PM PORTER JURADO [facility] During your visit today, we recorded the following information about you: Temperature Pulse Respiration Blood pressure 97.6 degrees 72/minute 16/minute 112/64 Weight 100.2 kg Porter Jurado MD 10/11/2018 9:21 PM Signed Patient presents with: Finger Pain: left pinky finger red and swollen x 1 month HPI: Finger infection: Location: Left 5th finger Duration: Finger hurt and was numb working outside on a cold day 1 month ago. Worsened about 1 1/2 weeks ago with more pain, swelling, and blackness Pruritis/Pain: Throbbing the last week, was intermittent with being hit before Change: Increasing black portion and pain the last 1 1/2 weeks. The black below the nail is progressing proximally. Drainage/blister/pustul e/ulceration: No drainage, even after putting a pin in it 1 1/2 weeks ago. Denies malaise or fever. Treatment: none Denies past Raynaud-like issues with his fingers. He has been treated for CTS, B vitamin supplement seemed to help. PAST MEDICAL HISTORY Diagnosis Date - Carpal tunnel syndrome PAST SURGICAL HISTORY Procedure Laterality Date - KNEE SURGERY HX Right pin right leg after Fx MEDICATIONS: No prescriptions on file. ALLERGIES: ALLERGIES No Known Allergies VITALS: BP 112/64 Pulse 72 Temp 36.4 ?C (97.6 ?F) (Tympanic) Resp 16 Wt 100.2 kg (221 lb) PHYSICAL EXAM: GEN: pleasant, no acute distress, alert HEENT: PERRL, EOMI, MMM NECK: supple, no lymphadenopathy, no thyromegaly HEART: regular rate, regular rhythm, no murmurs LUNGS: clear to auscultation, no wheezes or crackles, no increased WOB EXT: no clubbing, no cyanosis, no edema, 2 fingers partially amputated on right hand. Left 5th finger. 1cm black area at the tip, 5mm streaks of black under the distal finger nail. The tip of the finger is firm and dry. The palmar pad has slight pallor compared to the surrounding skin and trace edema with deep dark streaking. The pad below and around the tip is tender to palpation. The proximal finger has no edema or pain with ROM. Radial and brachial pulses are 2+/4. 2 photos uploaded to the chart. ASSESSMENT/PLAN: 1. Lesion of finger - ICD9: 709.9, ICD10: L98.9 Increasing black area and tenderness weeks after potential frostbite. The differential includes dry gangrene, occult injury, or embolic event. Follow up with surgery tomorrow. Seek ER evaluation for constitutional symptoms or rapid worsening. Porter Jurado MD Referring Provider: SELF [[id number]] Allergies As of Date: 10/11/2018 (No Known Allergies) Date Reviewed: 10/11/2018 Reviewed by: Stella Barksdale Ma - Fully Assessed Reason for Visit: Finger Pain [1583] Cmt: left pinky finger red and swollen x 1 month Primary Visit Diagnosis:Lesion of finger [L98.9] Order(s):CONSULT TO GENERAL SURGERY [9011] Order #: [id number]: 1 Problem List As Of Date: 10/11/2018 (None) Encounter Status:Closed by PORTER JURADO MD on 10/11/18 Normal [facility] PROGRESSon 10-11-2018 Protein mass conc HNO ID: [id number] Author: Porter Jurado Service: ? Author Type: Physician Type: Progress Notes Filed: 10/11/2018 9:21 PM Note Text: Patient presents with: Finger Pain: left pinky finger red and swollen x 1 month HPI: Finger infection: Location: Left 5th finger Duration: Finger hurt and was numb working outside on a cold day 1 month ago. Worsened about 1 1/2 weeks ago with more pain, swelling, and blackness Pruritis/Pain: Throbbing the last week, was intermittent with being hit before Change: Increasing black portion and pain the last 1 1/2 weeks. The black below the nail is progressing proximally. Drainage/blister/pustul e/ulceration: No drainage, even after putting a pin in it 1 1/2 weeks ago. Denies malaise or fever. Treatment: none Denies past Raynaud-like issues with his fingers. He has been treated for CTS, B vitamin supplement seemed to help. PAST MEDICAL HISTORY Diagnosis Date - Carpal tunnel syndrome PAST SURGICAL HISTORY Procedure Laterality Date - KNEE SURGERY HX Right pin right leg after Fx MEDICATIONS: No prescriptions on file. ALLERGIES: ALLERGIES No Known Allergies VITALS: BP 112/64 Pulse 72 Temp 36.4 ?C (97.6 ?F) (Tympanic) Resp 16 Wt 100.2 kg (221 lb) PHYSICAL EXAM: GEN: pleasant, no acute distress, alert HEENT: PERRL, EOMI, MMM NECK: supple, no lymphadenopathy, no thyromegaly HEART: regular rate, regular rhythm, no murmurs LUNGS: clear to auscultation, no wheezes or crackles, no increased WOB EXT: no clubbing, no cyanosis, no edema, 2 fingers partially amputated on right hand. Left 5th finger. 1cm black area at the tip, 5mm streaks of black under the distal finger nail. The tip of the finger is firm and dry. The palmar pad has slight pallor compared to the surrounding skin and trace edema with deep dark streaking. The pad below and around the tip is tender to palpation. The proximal finger has no edema or pain with ROM. Radial and brachial pulses are 2+/4. 2 photos uploaded to the chart. ASSESSMENT/PLAN: 1. Lesion of finger - ICD9: 709.9, ICD10: L98.9 Increasing black area and tenderness weeks after potential frostbite. The differential includes dry gangrene, occult injury, or embolic event. Follow up with surgery tomorrow. Seek ER evaluation for constitutional symptoms or rapid worsening. Porter Jurado MD Normal [facility] Vital Signs Date Time Vital Sign Value Performing Clinician Faci jose 11-11-2024 14:24-0400 Body temperature 98.2 [degF] Dr. Santy River MD Work Phone: [facility] 11-11-2024 14:24-0400 Diastolic blood pressure 77 mm[Hg] Dr. Santy River MD Work Phone: 4(540)469-493191 [place] [address] 11-11-2024 14:24-0400 Heart rate 67 /min Dr. Santy River MD Work Phone: 6(379)311-119091 [place] [address] 11-11-2024 14:24-0400 Respiratory rate 17 /min Dr. Santy River MD Work Phone: 0(679)725-697691 [place] [address] 11-11-2024 14:24-0400 SaO2% (BldA) [Mass fraction] 95 % Dr. Santy River MD Work Phone: 1(929)561-051991 [place] [address] 11-11-2024 14:24-0400 Systolic blood pressure 139 mm[Hg] Dr. Santy River MD Work Phone: 1(119)343-414421 [place] [address] 11-11-2024 00:47-0400 Inhaled oxygen flow rate 2 L/min Dr. Santy River MD Work Phone: 9(980)166-389891 [place] [address] 11-10-2024 10:50-0400 Body height 182.[address] Santy River MD Work Phone: 3(219)398-947991 [place] [address] 11-10-2024 10:50-0400 Body weight 115.[address] Santy River MD Work Phone: 7(012)311-527121 [place] [address] 11-09-2024 18:49-0400 Body mass index (BMI) [Ratio] 34.4 kg/m2 Dr. Santy River MD Work Phone: 1(825)115-258791 [place] [address] 11-09-2024 18:00-0400 Diastolic blood pressure 89 mm[Hg] Dr. Santy River MD Work Phone: 4(237)140-838591 [place] [address] 11-09-2024 18:00-0400 Heart rate 17 /min Dr. Santy River MD Work Phone: 6(221)862-130591 [place] [address] 11-09-2024 18:00-0400 Respiratory rate 18 /min Dr. Santy River MD Work Phone: 4(528)755-866391 [place] [address] 11-09-2024 18:00-0400 SaO2% (BldA) [Mass fraction] 94 % Dr. Santy River MD Work Phone: 7(003)907-039891 [place] [address] 11-09-2024 18:00-0400 Systolic blood pressure 154 mm[Hg] Dr. Santy River MD Work Phone: 3(863)096-748121 [place] [address] 11-09-2024 16:32-0400 Body temperature 98.3 [degF] Dr. Santy River MD Work Phone: 9(272)320-008821 [place] [address] 11-09-2024 10:20-0400 Body height 182.[address] Santy River MD Work Phone: 5(607)230-822921 [place] [address] 11-09-2024 10:20-0400 Body mass index (BMI) [Ratio] 34 kg/m2 Dr. Santy River MD Work Phone: 7(225)558-772421 [place] [address] 11-09-2024 10:20-0400 Body weight 113.[address] Santy River MD Work Phone: 7(722)637-054021 [place] [address] 08-11-2024 13:59-0500 Body temperature 97.7 [degF] Dr. Santy River MD Work Phone: 0(058)757-516121 [place] [address] 08-11-2024 13:59-0500 Diastolic blood pressure 66 mm[Hg] Dr. Santy River MD Work Phone: [phone] [place] [address] 08-11-2024 13:59-0500 Heart rate 105 /min Dr. Santy River MD Work Phone: [phone] [place] [address] 08-11-2024 13:59-0500 Respiratory rate 18 /min Dr. Santy River MD Work Phone: [phone] [place] [address] 08-11-2024 13:59-0500 SaO2% (BldA) [Mass fraction] 91 % Dr. Santy River MD Work Phone: [phone] [place] [address] 08-11-2024 13:59-0500 Systolic blood pressure 148 mm[Hg] Dr. Santy River MD Work Phone: [phone] [place] [address] 08-11-2024 11:07-0500 Body mass index (BMI) [Ratio] 35.4 kg/m2 Dr. Santy River MD Work Phone: [phone] [place] [address] 08-11-2024 11:070500 Body weight 118.[address] Santy River MD Work Phone: [facility] Encounters Encounter Date Encounter Type Care Provider Facility Start: 11-11-2024 Non-patient / Non-visit Dr. Nilton Bradford MD -[facility] Start: 11-10-2024 ambulatory Alpha Suzette Facility: [facility] Start: 11-10-2024 End: 11-11-2024 Evaluation and management of inpatient Dr. Nilton Bradford MD -[facility] 3 Work Phone: Start: 11-10-2024 Non-patient / Non-visit Dr. Nilton Bradford MD -[facility] Start: 11-09-2024 ambulatory Alpha Suzette Facility: [facility] Start: 11-09-2024 Evaluation and management of inpatient Dr. Nilton Bradford MD -[facility] Surgical 3 Work Phone: Start: 11-09-2024 Non-patient / Non-visit Dr. Nilton Bradford MD -[facility] Start: 11-09-[address] Santy River MD Work Phone: [facility] Work Phone: Start: 11-09-2024 End: 11-09-[address] Santy River MD Work Phone: [facility] Work Phone: Start: 11-09-2024 End: 11-09-[address] Kristie Herndon MD -[facility]iology[facility] Work Phone: Start: 11-09-2024 End: 11-09-2024 ambulatory Kristie Herndon Facility:[facility] Start: 08-11-2024 End: 08-11-2024 Emergency department patient visit Dr. Santy River MD -Emergency Department Work Phone: Start: 10-16-2018 End: 10-17-2018 Patient encounter procedure CAYLA WHITAKER (PA) [facility] Start: 10-11-2018 End: 10-12-2018 Patient encounter procedure CAYLA WHITAKER [facility] Procedures Date Procedure Procedure Detail Performing Clinician Start: 11-11-2024 End: 11-11-2024 Plain chest X-ray Dr. Santy River MD Work Phone: Start: 11-10-2024 Plain chest X-ray Dr. Danii River MD Work Phone: Start: 11-09-2024 Plain chest X-ray Dr. Danii River MD Work Phone: Start: 11-09-2024 End: 11-09-2024 Plain chest X-ray Dr. Santy River MD Work Phone: Start: 11-09-2024 Plain chest X-ray Dr. Danii River MD Work Phone: Start: 11-09-2024 X-ray of chest, PA a nd lateral views Dr. Santy River MD Work Phone: Start: 08-11-2024 Computed tomography of abdomen and pelvis with intravenous contrast Dr. Santy River MD Work Phone: Start: 08-11-2024 CT of chest without contrast Dr. Santy River MD Work Phone: Plan of Treatment Date Care Activity Detail Author Start: 11-11-2024 Patient discharge [facility] Start: 11-10-2024 Admission procedure [facility] Start: 11-10-2024 [facility] Start: 11-10-2024 Chest 1 View (Portable) Chest 1 View (Portable) [facility] Start: 11-10-2024 XR Chest Single view [facility] Start: 11-09-2024 Following clinical pathway protocol [facility] Start: 11-09-2024 Application of intermittent pneumatic compression device [facility] Start: 11-09-2024 Drainage tube care management [facility] Start: 11-09-2024 Incentive spirometry [facility] Start: 11-09-2024 [facility] Start: 11-09-2024 Admission procedure [facility] Start: 11-09-2024 Hospital admission, emergency, from emergency room, medical nature [facility] Start: 11-09-2024 Patient referral to dietitian [facility] Start: 08-11-2024 [facility] Patient Education ED Rib Fractur e ED Pneumonia (Adult) [facility] Work Phone: Patient referral [facility] Work Phone: Payers Date Payer Category Payer Unknown 2024 Self-pay 2024 Unknown [id number] Unknown [id number] 2.16.8 [id number] Unknown [id number] 2.16.8 [id number] Unknown [id number] 2.16.8 [id number] Unknown [id number] 2.16.8 [id number] Unknown [id number] 2.16.8 [id number] Unknown [id number] 2.16.8 [id number] Social History Date Type Detail Facility Start: 11-09-2024 End: 11-09-2024 Tobacco smoking status NHIS Ex-smoker (finding) [facility] Start: 1970 Sex Assigned At Male [facility] Goals Date Patient Goal Desired Activity /State Functional Status Date Assessment Result Facility 11-11-2024 Functional status Up ad alexis [facility] Work Phone: Clinical Notes 11-09-2024 to 11-11-2024 Note Date & Type Note Facility 11-11-2024 Discharge summary Note Date/Time November 11, 2024 3:15p m [facility] Medical Records Department [address] [place] [address] Discharge Summary 11/11/24 1333 MR#: [id number] Acct: [id number] Name: YAIR JONES Danii Rep #:[id number] : 1970 54 From: Nilton Matos PCP: Dr. Kristie Herndon MD Status:ADM IN Location: [facility] [id number] Providers Date of Admission: 11/10/24 Primary Care Physician: Dr. Kristie Herndon MD Reason For Visit: LEFT PNEUMOTHORAX Diagnosis Discharge Diagnosis (1) Pneumothorax: Status: Acute Code(s): J93.9 - Pneumothorax, unspecified Plan: Patient 54-year-old male who is admitted for inpatient management of large left pneumothorax status post small-caliber chest tube placement by emergency medicine yesterday. Encouragingly, patient's chest x-ray this morning showed noevidence of pneumothorax. On my reevaluation this morning patient has no evidence of an air leak and appears clinically improved. Although he denies anyshortness of breath or chest discomfort he was noted to have mildly low oxygen saturations overnight (reportedly nursing to have dipped to the high 80s) so he was placed on supplemental oxygen. I have stressed to him the need to continue diligent work with his pulmonary toilet to be able to wean his oxygen requirement but given finding of no airleak I transitioned him to waterseal. Will plan to repeat his chest x-ray and reevaluate in 24 hours. If at that timethere is still no evidence of air leak or pneumothorax I will discontinue his chest tube and obtain 1 last chest x-ray before planning for discharge home. Mr. Mrs. Jones expressed understanding but some mild frustration at not being able to be discharged home sooner. ? Waterseal chest tube today ? A.m. chest x-ray ? Wean supplemental O2 as able ? Notify surgery of any concerns immediately Nilton Bradford MD General Surgery Endocrine Surgery Pager: [facility] [address] [place] [address], [facility], [address] [place] [id number] Office: [phone] Medications at Discharge Home Medications NK 11/09/24 Hospital Course Operations None Procedures - (Chest tube placement) Summary of Care Provided Hospital Course: Patient is a 54-year-old male who presented with large left pneumothorax diagnosed on outpatient imaging 11/09/2024. Emergency medicine placed small bore chest tube to left upper chest and there was immediate reexpansion of the lung. Upon my exam in the emergency department patient had evidence of a small air leak he was admitted for inpatient management. By the morning of hospital day 2there is no further demonstration of airleak and no pneumothorax showing on routine chest x-ray. Thus he was placed to waterseal and chest x-ray was rechecked hospital day 3. Once again there is no sign of pneumothorax or air leak on the Pleur-evac system. With these reassuring exams his chest tube was discontinued at bedside. A post pull chest x-ray was obtained at 4 hours and showed no sizable pneumothorax. By my independent review of this imaging I donot identify any pneumothorax. Patient remains clinically stable from a respiratory standpoint. There is post pull chest tube dressing remains well adherent to the site. Outpatient expectations for both activity and PCP follow-up were reviewed. Patient and his family confirm understanding. Discharge was then granted. Physical Exam Const alert, oriented x3 and no apparent distress Resp normal respiratory effort Resp Narrative: Normal respirations, nonlabored, no crepitus of the chest wall, no evidence of air leak in the Pleur-evac waterseal chamber initially. Dressing following chest tube removal remained intact and air/watertight. Weight / BMI Weight Weight: 254 lb 6.615 oz Body Mass Index (BMI) 34.4 Radiography Diagnostic Testing: Radiology Impression Chest X-Ray 11/11/24 07:00 IMPRESSION: Left pleural drain is in good position. No residual or recurrent pneumothorax. [facility]-Ray 11/11/24 13:35 IMPRESSION: Interval removal of left chest tube without sizable pneumothorax. Reading Location: [facility] D/C Instructions Discharge Diet: No restrictions Additional Activity Instructions: Keep to nonexertional activity following hospital discharge Call your doctor if your incision/area has: Increased Redness and Swelling at the incision site Call your doctor if you observe: Shortness of breath, Chest pain and Uncontrolled pain DC O2, CPAP, BIPAP Needs Home O2 Discharge instructions: No Please Follow Up With: Kristie Herndon MD When: 2 weeks posthospital discharge Meaningful Use Info Meaningful Use Meaningful Use Diagnoses (Choose all that apply): None applicable Ischemic Stroke Statin Dosing Therapy Reference: STATIN DOSE THERAPY REFERENCE: * Patients > 75 years receive moderate or high dose statin therapy. * Patients 75 years or YOUNGER should receive HIGH intensity statin dose unless contraindicated. You will be required to document reason for non-treatment if statin daily dose does not meet guidelines. HIGH DOSE STATIN THERAPY DAILY Atorvastatin > than or = to 40 mg Rosuvastatin > than or = to 20 mg Amlodipine + Atorvastatin > than or = to 2.5/40 mg Ezetimibe + Simvastatin 10/80 mg Simvastatin 80mg Discharge Plan Admission Admit Date/Time: 11/10/24 13:55 Primary Reason for Your Visit: Left-sided pneumothorax Attending Provider: Nilton Bradford Primary Care Provider: Kristie Herndon Instructions Additional Instructions / Restrictions: Patient should notify PCP about nocturnal hypoxia and consider obtaining formal sleep study Discharge Orders/Prescriptions Prescriptions: No Action NK Referrals / Follow Up: Kristie Herndon MD [Primary Care Provider] - Disposition Disposition (needs filled in before D/C Order can be placed): Home, Self Care Charges/Coding Visit Charges Inpatient E&M: 90815 [facility] Hosp L1 11/11/24 1515 <Electronically signed by Nilton Bradford MD> Cosigner Signature (if applicable): CC: Dr. Kristie Herndon MD; Dr. Nilton Bradford MD~ Signed [facility] Work Phone: 1(214) 487-764805-11-2025 Discharge summary Author Nilton Bradford [facility] Note Date/Time November 11, 2024 3:13p [facility] Medical Records Department [address] [place] [address] Instructions for Home/Discharge Instructions 11/11/24 1330 MR#: [id number] Acct: [id number] Name: YAIR JONES Rep #:[id number] : 1970 54 From: Nilton Matos PCP: Dr. Kristie Herndon MD Status:ADM IN Discharge Instructions Diet Discharge Diet: No restrictions DC O2, CPAP, BIPAP needs Home O2 Discharge instructions: No Dressing / Incision Discharge Activity: May Not Shower (Recommend sponge baths only until chest tubedressing is discontinued in 48 hours) Additional Activity Instructions:: Keep to nonexertional activity following hospital discharge Dressing / Incision Call your doctor if your incision/area has: Increased Redness and Swelling at the incision site Call your doctor if you observe: Shortness of breath, Chest pain and Uncontrolled pain Remove Dressing in: 2 days Follow Up Care Please Follow Up With: Kristie Herndon MD When: 2 weeks posthospital discharge Test Results: Test results from this visit will be discussed in further detail at your follow- up appointment, if applicable. Discharge Plan Admission Admit Date/Time: 11/10/24 13:55 Primary Reason for Your Visit: Left-sided pneumothorax Attending Provider: iNlton Bradford Primary Care Provider: Kristie Herndon Instructions Additional Instructions / Restrictions: Patient should notify PCP about nocturnal hypoxia and consider obtaining formal sleep study Discharge Orders/Prescriptions Prescriptions: No Action NK Referrals / Follow Up: Kristie Herndon MD [Primary Care Provider] - Disposition Disposition (needs filled in before D/C Order can be placed): Home, Self Care 11/11/24 2013<Electronically signed by Nilton Bradford MD>Nilton Bradford MD CC: Dr. Kristie Herndon MD ~ Signed [facility] Work Phone: 1(684) 652-811405-11-2025 Discharge summary [facility] Medical Records Department [address] [place] [address] Discharge Summary 11/11/24 1333 MR#: [id number] Acct: [id number] Name: YAIR JONES Rep #:[id number] : 1970 54 From: Nilton Matos PCP: Dr. Kristie Herndon MD Status:ADM IN Location: [place] [address] Providers Date of Admission: 11/10/24 Primary Care Physician: Dr. Kristie Herndon MD Reason For Visit: LEFT PNEUMOTHORAX Diagnosis Discharge Diagnosis (1) Pneumothorax: Status: Acute Code(s): J93.9 - Pneumothorax, unspecified Plan: Patient 54-year-old male who is admitted for inpatient management of large left pneumothorax statuspost small-caliber chest tube placement by emergency medicine yesterday. Encouragingly, patient's chest x-ray this morning showed noevidence of pneumothorax. On my reevaluation this morning patient has no evidence of an air leak and appears clinically improved. Although he denies anyshortness of leonidas ath or chest discomfort he was noted to have mildly low oxygen saturations overnight (reportedly nursing to have dipped to the high 80s) so he was placed on supplemental oxygen. I have stressed to him the need to continue diligent work with his pulmonary toilet to be able to wean his oxygen requirement but given finding of no airleak I transitioned him to waterseal. Will plan to repeat his chest x-ray and reevaluate in 24 hours. If at that timethere is still no evidence of air leak or pneumothorax I will discontinue his chest tube and obtain 1 last chest x-ray before planning for discharge home. . Mrs. Jones expressed understanding but some mild frustration at not being able to be discharged home sooner. ? Waterseal chest tube today ? A.m. chest x-ray ? Wean supplemental O2 as able ? Notify surgery of any concerns immediately Nilton Bradford MD General Surgery Endocrine Surgery Pager: [facility] [address] [place] [address], [address] [place] [address] Office: [phone] Medications at Discharge Home Medications NK 11/09/24 Hospital Course Operations None Procedures - (Chest tube placement) Summary of Care Provided Hospital Course: Patient is a 54-year-old male who presented with large left pneumothorax diagnosed on outpatient imaging 11/09/2024. Emergency medicine placed small bore chest tube to left upper chest and there was immediate reexpansion of the lung. Upon my exam in the emergency department patient had evidence of a small air leak he was admitted for inpatient management. By the morning of hospital day 2there is nofurther demonstration of airleak and no pneumothorax showing on routine chest x-ray. Thus he was placed to waterseal and chest x-ray was rechecked hospital day 3. Once again there is no sign of pneumothorax or air leak on the Pleur-evac system. With these reassuring exams his chest tube was discontinued at bedside. A post pull chest x-ray was obtained at 4 hours and showed no sizable pneumothorax. By my independent review of this imaging I donot identify any pneumothorax. Patient remains clinically stable from a respiratory standpoint. There is post pull chest tube dressing remains well adhe rent to the site. Outpatient expectations for both activity and PCP follow-up were reviewed. Patient and his family confirm understanding. Discharge was then granted. Physical Exam Const alert, oriented x3 and no apparent distress Resp normal respiratory effort Resp Narrative: Normal respirations, nonlabored, no crepitus of the chest wall, no evidence of air leak in the Pleur-evac waterseal chamber initially. Dressing following chest tube removal remained intact and air/watertight. Weight / BMI Weight Weight: 254 lb 6.615 oz Body Mass Index (BMI) 34.4 Radiography Diagnostic Testing: Radiology Impression Chest X-Ray 11/11/24 07:00 IMPRESSION: Left pleural drain is in good position. No residual or recurrent pneumothorax. Reading Location: [place] [address] Chest X-Ray 11/11/24 13:35 IMPRESSION: Interval removal of left chest tube without sizable pneumothorax. Reading Location: [facility] D/C Instructions Discharge Diet: No restrictions Additional Activity Instructions: Keep to nonexertional activity following hospital discharge Call your doctor if your incision/area has: Increased Redness and Swelling at the incision site Call your doctor if you observe: Shortness of breath, Chest pain and Uncontrolled pain DC O2, CPAP, BIPAP Needs Home O2 Discharge instructions: No Please Follow Up With: Kristie Herndon MD When: 2 weeks posthospital discharge Meaningful Use Info Meaningful Use Meaningful Use Diagnoses (Choose all that apply): None applicable Ischemic Stroke Statin Dosing Therapy Reference: STATIN DOSE THERAPY REFERENCE: * Patients > 75 years receive moderate or high dose statin therapy. * Patients 75 years or YOUNGER should receive HIGH intensity statin dose unless contraindicated. You will be required to document reason for non-treatment if statin daily dose does not meet guidelines. HIGH DOSE STATIN THERAPY DAILY Atorvastatin > than or = to 40 mg Rosuvastatin > than or = to 20 mg Amlodipine + Atorvastatin > than or = to 2.5/40 mg Ezetimibe + Simvastatin 10/80 mg Simvastatin 80mg Discharge Plan Admission Admit Date/Time: 11/10/24 13:55 Primary Reason for Your Visit: Left-sided pneumothorax Attending Provider: Nilton Bradford Primary Care Provider: Kristie Herndon Instructions Additional Instructions / Restrictions: Patient should notify PCP about nocturnal hypoxia and consider obtaining formal sleep study Discharge Orders/Prescriptions Prescriptions: No Action NK Referrals / Follow Up: Kristie Herndon MD [Primary Care Provider] - Disposition Disposition (needs filled in before D/C Order can be placed): Home, Self Care Charges/Coding Visit Charges Inpatient E&M: 17874 Subs Hosp L1 11/11/24 1515 Cosigner Signature (if applicable): CC: Dr. Kirstie Herndon MD; Dr. Nilton Bradford MD~ Signed [facility]05-11-2025 Discharge summary [facility] Medical Records Department [address] [place] [address] Instructions for Home/Discharge Instructions 11/11/24 1330 MR#: [id number] Acct: [id number] Name: YAIR JONES Rep #:[id number] : 1970 54 From: Nilton Matos PCP: Dr. Kristie Herndon MD Status:ADM IN Discharge Instructions Diet Discharge Diet: No restrictions DC O2, CPAP, BIPAP needs Home O2 Discharge instructions: No Dressing / Incision Discharge Activity: May Not Shower (Recommend sponge baths only until chest tubedressing is discontinued in 48 hours) Additional Activity Instructions:: Keep to nonexertional activity following hospital discharge Dressing / Incision Call your doctor if your incision/area has: Increased Redness and Swelling at the incision site Call your doctor if you observe: Shortness of breath, Chest pain and Uncontrolled pain Remove Dressing in: 2 days Follow Up Care Please Follow Up With: Kristie Herndon MD When: 2 weeks posthospital discharge Test Results: Test results from this visit will be discussed in further detail at your follow- up appointment, if applicable. Discharge Plan Admission Admit Date/Time: 11/10/24 13:55 Primary Reason for Your Visit: Left-sided pneumothorax Attending Provider: Nilton Bradford Primary Care Provider: Kristie Herndon Instructions Additional Instructions / Restrictions: Patient should notify PCP about nocturnal hypoxia and consider obtaining formal sleep study Discharge Orders/Prescriptions Prescriptions: No Action NK Referrals / Follow Up: Kristie Herndon MD [Primary Care Provider] - Disposition Disposition (needs filled in before D/C Order can be placed): Home, Self Care 11/11/24 Joyce Bradford MD CC: Dr. Kristie Herndon MD ~ Signed [facility]05-11-2025 Radiology Diagnostic study note [facility] Imaging Services [address] [place] [address] Chest 1 View (Portable) MR#: [id number] Acct: [id number] Name: YAIR JONES Rep #: [id number] : 1970 M 54 From: Jie Hilario MD PCP: Dr. Kristie Herndon MD Status: ADM IN Study:Chest 1 View (Portable) Date of Exam: 11/11/24 Exam# [id number] Ordering Dr: Nataliia Bradford MD PROCEDURE: CHEST 1 VIEW (PORTABLE) 11/11/2024 REASON FOR EXAM: F/U CHEST TUBE REMOVAL TECHNIQUE: Frontal view of the chest. COMPARISON: 11/11/2024 FINDINGS: No focal consolidations. Interval removal of left chest tube without sizable pneumothorax. No pleural effusions. Cardiac silhouette is unchanged. No acute fractures RAD/Chest 1 View (Portable) IMPRESSION: Interval removal of left chest tube without sizable pneumothorax. Reading Location: [facility] CC: Dr. Kristie Herndon MD; Dr. Nilton Bradford MD ~ Loan Assistant: Signed [facility]05-11-2025 [facility] Medical Records Department [address] [place] [address] Discharge Summary 11/11/24 1333 MR#: [id number] Acct: [id number] Name: YAIR JONES Rep #: [id number] : 1970 54 From: Nilton Bradford MD PCP: Dr. Kristie Herndon MD Status:ADM IN [facility] Date of Admission: 11/10/24 Primary Care Physician: Dr. Kristie Herndon MD Reason For Visit: LEFT PNEUMOTHORAX Diagnosis Discharge Diagnosis (1) Pneumothorax: Status: Acute Code(s): J93.9 - Pneumothorax, unspecified Plan: Patient 54-year-old male who is admitted for inpatient management of large left pneumothorax status post small-caliber chest tube placement by emergency medicine yesterday. Encouragingly, patient's chest x-ray this morning showed no evidence of pneumothorax. On my reevaluation this morning patient has no evidence of an air leak and appears clinically improved. Although he denies any shortness of breath or chest discomfort he was noted to have mildly low oxygen saturations overnight (reportedly nursing to have dipped to the high 80s) so he was placed on supplemental oxygen. I have stressed to him the need to continue diligent work with his pulmonary toilet to be able to wean his oxygen requirement but given finding of no airleak I transitioned him to waterseal. Will plan to repeat his chest x-ray and reevaluate in 24 hours. If at that time there is still no evidence of air leak or pneumothorax I will discontinue his chest tube and obtain 1 last chest x-ray before planning for discharge home. . Mrs. Jones expressed understanding but some mild frustration at not being able to be discharged home sooner. ??? Waterseal chest tube today ??? A.m. chest x-ray ??? Wean supplemental O2 as able ??? Notify surgery of any concerns immediately Nilton Bradford MD General Surgery Endocrine Surgery Pager: [facility] [facility] [address] [place] [address], [address] [place] [address] Office: [phone] Medications at Discharge Home Medications NK 11/09/24 Hospital Course Operations None Procedures - (Chest tube placement) Summary of Care Provided Hospital Course: Patient is a 54-year-old male who presented with large left pneumothorax diagnosed on outpatient imaging 11/09/2024. Emergency medicine placed small bore chest tube to left upper chest and there was immediate reexpansion of the lung. Upon my exam in the emergency department patient had evidence of a small air leak he was admitted for inpatient management. By the morning of hospital day 2 there is no further demonstration of airleak and no pneumothorax showing on routine chest x-ray. Thus he was placed to waterseal and chest x-ray was rechecked hospital day 3. Once again there is no sign of pneumothorax or air leak on the Pleur-evac system. With these reassuring exams his chest tube was discontinued at bedside. A post pull chest x-ray was obtained at 4 hours and showed no sizable pneumothorax. By my independent review of this imaging I do not identify any pneumothorax. Patient remains clinically stable from a respiratory standpoint. There is post pull chest tube dressing remains well adherent to the site. Outpatient expectations for both activity and PCP follow-up were reviewed. Patient and his family confirm understanding. Discharge was then granted. Physical Exam Const alert, oriented x3 and no apparent distress Resp normal respiratory effort Resp Narrative: Normal respirations, nonlabored, no crepitus of the chest wall, no evidence of air leak in the Pleur-evac waterseal chamber initially. Dressing following chest tube removal remained intact and air/watertight. Weight / BMI Weight Weight: 254 lb 6.615 oz Body Mass Index (BMI) 34.4 Radiography Diagnostic Testing: Radiology Impression Chest X-Ray 11/11/24 07:00 IMPRESSION: Left pleural drain is in good position. No residual or recurrent pneumothorax. [facility] Chest X-Ray 11/11/24 13:35 IMPRESSION: Interval removal of left chest tube without sizable pneumothorax. Reading Location: [facility] D/C Instructions Discharge Diet: No restrictions Additional Activity Instructions: Keep to nonexertional activity following hospital discharge Call your doctor if your incision/area has: Increased Redness and Swelling at the incision site Call your doctor if you observe: Shortness of breath, Chest pain and Uncontrolled pain DC O2, CPAP, BIPAP Needs Home O2 Discharge instructions: No Please Follow Up With: Kristie Herndon MD When: 2 weeks posthospital discharge Meaningful Use Info Meaningful Use Meanin (more content not included)...[facility]05-11-2025 Radiology Diagnostic study note [facility] Imaging Services [address] [place], [place] [address] Chest 1 View (Portable) MR#: [id number] Acct: [id number] Name: YAIR JONES Rep #: [id number] : 1970 M 54 From: Jazmine Barros MD PCP: Dr. Kristie Herndon MD Status: ADM IN Study:Chest 1 View (Portable) Date of Exam: 11/11/24 Exam# [id number] Ordering Dr: Nataliia Bradford MD PROCEDURE: CHEST 1 VIEW (PORTABLE) 11/11/2024 REASON FOR EXAM: F/U L PTX AND CT TECHNIQUE: Frontal view of the chest. COMPARISON: 11/10/2024. FINDINGS: Left pleural drain is again noted with its tip in the apex of the left pleural cavity. No residual or recurrent pneumothorax is seen. The lungs are expanded. There is no demonstrated parenchymal abnormality. There is no demonstrated pleural abnormality. Normal heart and pericardium. Normal mediastinum and chadwick. Normal visualized pulmonary arteries. Normal visualized aortic arch and descending thoracic aorta. Diffuse spondylosis of the visualized thoracic spine. Normal visualized ribs, clavicles, and shoulders. There is no demonstrated abnormality of the visualized soft tissue structures ofthe upper abdomen. RAD/Chest 1 View (Portable) IMPRESSION: Left pleural drain is in good position. No residual or recurrent pneumothorax. Reading Location: [place] [address] CC: Dr. Kristie Herndon MD; Dr. Nilton Bradford MD ~ Loan Assistant: Signed [facility]05-10-2025 Evaluation note* Diagnosis Onset Date Resolution Status Admit Date Dyspnea acute November 10, 2024 1:55pm Pneumothorax acute November 10 1:55pm [facility] Work Phone: 1(435) 957-386105-10-2025 Progress note Author Nilton Bradford [facility] Note Date/Time November 10, 2024 11:13 am [facility] Medical Records Department [address] [place] [address] Progress Note - Surgery 11/10/24 1005 MR#: [id number] Acct: [id number] Name: YAIR JONES Rep #:[id number] : 1970 54 From: Nilton Matos PCP: Dr. Kristie Herndon MD Status:ADM TED Location: [address] Subjective Subjective Patient seen and evaluated during AM rounds. He is found resting in bed eating his breakfast. He denies any shortness of breath and yet states he was placed on oxygen overnight due to low oxygen saturations. He reports that he is working diligently with his pulmonary toilet and making regular use of his incentive spirometer and Pep. Lastly he reports that the chest discomfort from his chest tube is definitely improved from yesterday. Objective Data Objective Data Vital Signs: Vital Signs Temp Pulse Resp BP Pulse Ox O2 Del Method O2 Flow Rate 97.4 F L 56 L 18 132/81 H 97 Room Air 2 11/10/24 08:13 11/10/24 08:13 11/10/24 08:13 11/10/24 08:13 11/10/24 10:01 11/10/24 10:01 11/10/24 08:13 Oxygen Flow Rate (L/min) 2 Oxygen Delivery Method Room Air Weight: 254 lb 6.615 oz Body Mass Index (BMI) 34.4 Intake & Output: Intake and Output for Last 24 Hours 11/08/24 11/09/24 11/10/24 23:59 23:59 23:59 Intake Total 50 / 50 Output Total 625 / 625 Balance 50 / 50 -625 / -625 Radiography Diagnostic Testing: Radiology Impression Chest X-Ray 11/09/24 11:50 IMPRESSION: Chest tube catheter placed in the left upper lung field. Persistent pneumothorax. Clinical correlation is recommended. Reading Location: [facility]- Chest X-Ray 11/09/24 13:30 IMPRESSION: Persistent left-sided pneumothorax, unchanged. Clinical correlation is recommended. Reading [facility] Chest [facility]-Ray 11/09/24 14:25 IMPRESSION: Left chest tube is in place. Reading Location: [facility] Chest X-Ray 11/09/24 16:28 IMPRESSION: No Acute Findings. Reading Location: [facility] Chest X-Ray 11/10/24 04:35 IMPRESSION: Small caliber left chest tube again noted with tip extending to the medial left apex. There is now some bending of the tube. No pneumothorax or pleural effusion identified. Reading Location: [facility] Physical Exam Const oriented x3 and no apparent distress Resp normal respiratory effort Resp Narrative: Chest tube remains in place to left upper chest wall. Chest tube dressing appears intact and there appears to be no kinking of the chest tube despite several tight curves. There is no crepitus upon palpation of the chest wall. Patient remains appropriately to -20 cm water suction on his Pleur-evac device. He is asked to cough in succession and there is no evidence of air leak on the Pleur-evac device. Assessment & Plan Assessment/Plan (1) Pneumothorax: PLAN: Patient 54-year-old male who is admitted for inpatient management of largeleft pneumothorax status post small-caliber chest tube placement by emergency medicine yesterday. Encouragingly, patient's chest x-ray this morning showed noevidence of pneumothorax. On my reevaluation this morning patient has no evidence of an air leak and appears clinically improved. Although he denies any shortness of breath or chest discomfort he was noted to have mildly low oxygen saturations overnight (reportedly nursing to have dipped to the high 80s) so he was placed on supplemental oxygen. I have stressed to him the need to continue diligent work with his pulmonary toilet to be able to wean his oxygen requirement but given finding of no airleak I transitioned him to waterseal. Will plan to repeat his chest x-ray and reevaluate in 24 hours. If at that timethere is still no evidence of air leak or pneumothorax I will discontinue his chest tube and obtain 1 last chest x-ray before planning for discharge home. Mr. Mrs. Jones expressed understanding but some mild frustration at not being able to be discharged home sooner. ? Waterseal chest tube today ? A.m. chest x-ray ? Wean supplemental O2 as able ? Notify surgery of any concerns immediately Nilton Bradford MD General Surgery Endocrine Surgery Pager: [facility] [address] [place] [address], [facility], [address] [place] [address] Office: [phone] Charges/Coding Visit Charges Inpatient E&M: 38836 Subs Hosp L2 11/10/24 1113 <Electronically signed by Nilton Bradford MD> Cosigner Signature (if applicable): CC: ~ Signed [facility] Work Phone: 1(346) 164-246205-10-2025 Progress note [facility] Medical Records Department [address] [place] [address] Progress Note - Surgery 11/10/24 1005 MR#: [id number] Acct: [id number] Name: YAIR JONES Rep #:[id number] : 1970 54 From: Nilton Matos PCP: Dr. Kristie Herndon MD Status:ADM TED Location: [facility] CC[facility]-1 Subjective Subjective Patient seen and evaluated during AM rounds. He is found resting in bed eating his breakfast. He denies any shortness of breath and yet states he was placed on oxygen overnight due to low oxygen saturations. He reports that he is working diligently with his pulmonary toilet and making regular use of his incentive spirometer and Pep. Lastly he reports that the chest discomfort from his chest tube is definitely improved from yesterday. Objective Data Objective Data Vital Signs: Vital Signs Temp Pulse Resp BP Pulse Ox O2 Del Method O2 Flow Rate 97.4 F L 56 L 18 132/81 H 97 Room Air 2 11/10/24 08:13 11/10/24 08:13 11/10/24 08:13 11/10/24 08:13 11/10/24 10:01 11/10/24 10:01 11/10/24 08:13 Oxygen Flow Rate (L/min) 2 Oxygen Delivery Method Room Air Weight: 254 lb 6.615 oz Body Mass Index (BMI) 34.4 Intake & Output: Intake and Output for Last 24 Hours 11/08/24 11/09/24 11/10/24 23:59 23:59 23:59 Intake Total 50 / 50 Output Total 625 / 625 Balance 50 / 50 -625 / -625 Radiography Diagnostic Testing: Radiology Impression Chest X-Ray 11/09/24 11:50 IMPRESSION: Chest tube catheter placed in the left upper lung field. Persistent pneumothorax. Clinical correlation is recommended. Reading Location: [facility] Chest X-Ray 11/09/24 13:30 IMPRESSION: Persistent left-sided pneumothorax, unchanged. Clinical correlation is recommended. Reading Location[facility] Chest X-Ray 11/09/24 14:25 IMPRESSION: Left chest tube is in place. Reading Location[facility] Chest X-Ray 11/09/24 16:28 IMPRESSION: No Acute Findings. Reading Location: [facility] Chest X-Ray 11/10/24 04:35 IMPRESSION: Small caliber left chest tube again noted with tip extending to the medial left apex. There is now some bending of the tube. No pneumothorax or pleural effusion identified. Reading Location: [facility] Physical Exam Const oriented x3 and no apparent distress Resp normal respiratory effort Resp Narrative: Chest tube remains in place to left upper chest wall. Chest tube dressing appears intact and there appears to be no kinking of the chest tube despite several tight curves. There is no crepitus upon palpation of the chest wall. Patient remains appropriately to -20 cm water suction on his Pleur-evac device. He is asked to cough in succession and there is no evidence of air leak on the Pleur-evac device. Assessment & Plan Assessment/Plan (1) Pneumothorax: PLAN: Patient 54-year-old male who is admitted for inpatient management of largeleft pneumothorax status post small-caliber chest tube placement by emergency medicine yesterday. Encouragingly, patient's chest x-ray this morning showed noevidence of pneumothorax. On my reevaluation this morning patient has no evidence of an air leak and appears clinically improved. Although he denies any shortnessof breath or chest discomfort he was noted to have mildly low oxygen saturations overnight (reportedly nursing to have dipped to the high 80s) so he was placed on supplemental oxygen. I have stressedto him the need to continue diligent work with his pulmonary toilet to be able to wean his oxygen requirement but given finding of no airleak I transitioned him to [facility]. Will plan to repeat his chest x-ray and reevaluate in 24 hours. If at that timethere is still no evidence of air leak or pneumothorax I will discontinue his chest tube and obtain 1 last chest x-ray before planning for discharge home. Mr. Mrs. Jones expressed understanding but some mild frustration at not being able to be discharged home sooner. ? Waterseal chest tube today ? A.m. chest x-ray ? Wean supplemental O2 as able ? Notify surgery of any concerns immediately Nilton Bradford MD General Surgery Endocrine Surgery Pager: [facility] [address] [place] [address], [facility], [address] [place] [address] Office: [phone] Charges/Coding Visit Charges Inpatient E&M: 68789 Subs Hosp L2 11/10/24 1113 Cosigner Signature (if applicable): CC: ~ Signed [facility]05-10-2025 Radiology Diagnostic study note [facility] Imaging Services [address] [place] [address] Chest 1 View (Portable) MR#: [id number] Acct: [id number] Name: YAIR JONES Rep #: [id number] : 1970 M 54 From: Tee Friedman MD PCP: Dr. Kristie Herndon MD Status: ADM TED Study:Chest 1 View (Portable) Date of Exam: 11/10/24 Exam# [id number] Ordering Dr: Nataliia Bradford MD PROCEDURE: CHEST 1 VIEW (PORTABLE) 11/10/2024 REASON FOR EXAM: FOLLOW-UP LEFT PNEUMOTHORAX TECHNIQUE: Frontal view of the chest. 2 images to include the entire chest COMPARISON: 11/09/2024 FINDINGS: Small caliber left chest tube again noted with tip extending to the medial left apex. There is now some bending of the tube. No pneumothorax or pleural effusion identified. The lungs appear clear. The cardiac and mediastinal contours appear within limits. Right shoulder degenerative changes again noted. RAD/Chest 1 View (Portable) IMPRESSION: Small caliber left chest tube again noted with tip extending to the medial left apex. There is now some bending of the tube. No pneumothorax or pleural effusion identified. Reading Location: [id number] CC: Dr. Kristie Herndon MD; Dr. Nilton Bradford MD ~ Loan Assistant: Signed [facility]05-09-2025 History and physical note Author Nilton Bradford [facility] Note Date/Time November 09, 2024 6:36pm [facility] Medical Records Department [address] [place] [address] History & Physical Exam 11/09/24 1749 MR#: [id number] Acct: [id number] Name: YAIR JONES Rep #:[id number] : 1970 54 From: Nilton Matos PCP: Dr. Kristie Herndon MD Status:ADM TED Location: [facility] WB518-5 HPI - General General Date of Admission: 11/09/24 Chief Complaint: Acute onset of shortness of breath HPI Narrative YAIR JONES, is a 54 M who presents to [facility] with complaints of 1-1/2 weeks of progressive shortness of breath and decreased exercise tolerance. He states he initially tried to self medicate for sensitivities to pollen but the shortness of breath became so progressive he told his he needed to seek medical attention. He states he was no longer able to even walk a short distance without becoming winded. He was evaluated atoutpatient setting with chest x-ray which showed a large left pneumothorax and was directed to present to the emergency department. In the emergency department patient underwent chest tube placement with a pneumodart but this appeared to kink and so emergency medicine used a pigtail catheterand there was immediate reexpansion of the lung. They discussed possible outpatient management of this pneumothorax but I recommended inpatient admissionwith a goal of hopefully removing patient's chest tube sooner and minimizing therisk for emergency. Through further discussion patient admits to recent trauma in August of this year where he fell approximately 8 feet from height to the frozen ground below. He states that although he fell onto his left hip a plank fell on top of his chest and cause significant chest discomfort. He reports a delayed presentationapproximately 24 hours after his trauma to the emergency department. Here CT chest was performed demonstrating small pneumothorax and a rib fracture. He wasdischarged home with word that he may have a small pneumonia in the lung as well. He states that he did well overall following this time until a week and ahalf ago, but his who was present, suggest that there were lingering concerns for her along. Patient has no significant past medical history but is quick to admit he does not regularly follow with a medical provider. He does admit to a smoking history of approximately 20 pack years (10 years at 2 packs/day). He states that he underwent smoking cessation approximately 15 years ago. [facility] Home Medications ?Medication ?Instructions ?Recorded ?Last Taken ?Type NK 11/09/24 Unknown History Allergy/AdvReac Type Severity Reaction Status Date / Time No Known Allergies Allergy Verified 11/09/24 10:40 Surgical History (Updated 11/09/24 @ 11:[address] Aston Lemos DO) S/P ORIF (open reduction internal fixation) fracture Social History Smoking Status: Former smoker Vital Signs Vital Signs Vital Signs: 11/09/24 10:20 11/09/24 10:30 11/09/24 11:20 Temperature 97.6 F L Temperature Source Temporal Pulse Rate 73 46 L Respiratory Rate 19 H 29 H Respiratory Effort Short of Breath Respiratory Depth Shallow Blood Pressure 156/98 H 128/77 H Blood Pressure Mean 117 94 Pulse Ox 95 98 Oxygen Delivery Method Room Air Room Air Room Air 11/09/24 12:00 11/09/24 13:00 11/09/24 14:00 Temperature Temperature Source Pulse Rate 76 78 67 Respiratory Rate 20 H 19 H 20 H Respiratory Effort Respiratory Depth Blood Pressure 112/85 H 145/80 H 151/98 H Blood Pressure Mean 94 101 115 Pulse Ox 92 94 98 Oxygen Delivery Method Room Air 11/09/24 15:00 11/09/24 16:19 11/09/24 16:32 Temperature 98.3 F Temperature Source Pulse Rate 78 64 64 Respiratory Rate 20 H 20 H Respiratory Effort Respiratory Depth Blood Pressure 130/90 H 121/69 H 121/69 H Blood Pressure Mean 103 86 86 Pulse Ox 94 96 Oxygen Delivery Method 11/09/24 17:00 Temperature Temperature Source Pulse Rate 72 Respiratory Rate 19 H Respiratory Effort Respiratory Depth Blood Pressure 152/92 H Blood Pressure Mean 112 Pulse Ox 94 Oxygen Delivery Method Weight Weight: 250 lb 8 oz Body Mass Index (BMI) 34.0 Physical Exam Const alert, oriented x3, no apparent distress and well nourished General Appearance: cooperative Resp normal respiratory effort Resp Narrative: Patient with small bore chest tube to the left upper chest. There is a scant amount of bloody drainage about the insertion site. Chest tube initially connected with a Heimlich valve in line but once this was removed there is a small intermittent 1 column of air leak on the chest tube Pleur-evac system. Results Imaging Radiology Impression Chest X-Ray 11/09/24 11:50 IMPRESSION: Chest tube catheter placed in the left upper lung field. Persistent pneumothorax. Clinical correlation is recommended. Reading Location: [facility] Chest X-Ray 11/09/24 13:30 IMPRESSION: Persistent left-sided pneumothorax, unchanged. Clinical correlation is recommended. Reading Location: [facility] Chest X-Ray 11/09/24 14:25 IMPRESSION: Left chest tube is in place. Reading Location: [facility] Chest X-Ray 11/09/24 16:28 IMPRESSION: No Acute Findings. Reading Location: [facility] Assessment & Plan Assessment/Plan (1) Pneumothorax: PLAN: Patient 54-year-old male who presents with acute dyspnea and outpatient imaging that showed large left pneumothorax. Indeed, x-ray imaging is reviewed and showed complete collapse of the left lung but there are no signs of tension phenomenon. Chest tube was successfully placed by emergency medicine and there has been reexpansion of the lung. Upon my evaluation patient does have a small intermittent airleak at -20 cm of water. It remains unclear to me what the etiology for patient's pneumothorax is given an antecedent history of trauma andleft rib fracture in August of this year. Additionally, CT imaging from his evaluation following that trauma showed apparent blebs in the lingula of the left lung and he has a history of tobacco use. I find it highly unusual for such a late presentation with a pneumothorax if this is related to his trauma. Instead, I suspect this is related to a bleb rupture from the finding seen on his CT imaging. Regardless, I discussed with him conservative management with keeping the chest tube to suction while he demonstrates evidence of an air leak. Will plan to repeat his chest x-ray in the a.m. If there is no air leak at that time would waterseal and determine timing for additional imaging/possible chest tube discontinuation. Nilton Bradford MD General Surgery Endocrine Surgery Pager: [facility] [address] [place] [address], [facility], [address] [place] [address] Office: [phone] Charges/Coding Visit Charges Inpatient E&M: 01011 Init Hosp L2 11/09/24 1836 <Electronically signed by Nilton Bradford MD> Cosigner Signature (if applicable): CC: Dr. Kristie Herndon MD; Dr. Nilton Bradford MD~ Signed [facility] Work Phone: 1(435) 349-215905-09-2025 Discharge summary Author Aston Lemos [facility] Note Date/Time November 09, 2024 5:17pm [facility] Medical Records Department [address] [place] [address] Emergency Department Summary 11/09/24 MR#: [id number] Acct: [id number] Name: YAIR JONES Rep #:[id number] : 1970 54 From: Aston Uriarte PCP: Dr. Kristie Herndon MD Status:REG ER Location: ED HPI History of Present Illness Chief Complaint: Shortness of Breath Onset/Context/Timing Onset: Weeks (1.5) Context: gradual Timing: Continuous Quality: Positive for Dyspnea on exertion Worsened by: Exertion Relieved by: Rest Associated Symptoms Negative for cough, rhinorrhea, post nasal drip, ear pain, fever, sore throat, chills, sweats, clear sputum, white sputum, yellow sputum or green sputum Chest Pain: Positive for None Narrative Narrative: Patient presents with shortness of breath that has been worse for the past week and a half patient states it is gradually gotten worse. Patient states his breathing is worse with any exertion. Patient states it is better with rest. Patient denies any cough or fevers. Patient went to his primary care physician today who ordered an outpatient chest x-ray. This was interpreted by the radiologist as a complete pneumothorax on the left. Patient was then referred to the emergency department. PE Risk Factors: Negative for Cancer, OCP + Smoking + > 35, Prior DVT or PE, Recent immobilization, Recent surgery or Recent travel [facility] Home Medications ?Medication ?Instructions ?Recorded ?Last Taken ?Type NK 11/09/24 Unknown History Allergy/AdvReac Type Severity Reaction Status Date / Time No Known Allergies Allergy Verified 11/09/24 10:40 Surgical History (Updated 11/09/24 @ 11:[address] Aston Lemos, ) S/P ORIF (open reduction internal fixation) fracture Social History Smoking Status: Former smoker ROS ROS ED Constitutional Constitutional ED: Denies chills or fever(s) Eyes Eyes: Denies blurry vision or change in vision ENT ENT ED: Denies rhinorrhea or sore throat Cardiovascular Cardiovascular: Denies chest pain or palpitations Respiratory/Chest Respiratory/Chest: Reports dyspnea; Denies cough Gastrointestinal Gastrointestinal: Denies nausea or vomiting Genitourinary Genitourinary ED: Denies dysuria or hematuria Musculoskeletal Musculoskeletal: Denies back pain or neck pain Integumentary Denies abscess or rash Neurologic Neurologic: Denies headache(s) or weakness Allergic/Immunologic Allergic/Immunologic ED: Denies mouth swelling or urticaria EXAM Physical Exam Const Vital Signs: 11/09/24 10:20 11/09/24 10:30 11/09/24 11:20 Temperature 97.6 F L Temperature Source Temporal Pulse Rate 73 46 L Respiratory Rate 19 H 29 H Respiratory Effort Short of Breath Respiratory Depth Shallow Blood Pressure 156/98 H 128/77 H Blood Pressure Mean 117 94 Pulse Ox 95 98 Oxygen Delivery Method Room Air Room Air Room Air 11/09/24 12:00 11/09/24 13:00 11/09/24 14:00 Temperature Temperature Source Pulse Rate 76 78 67 Respiratory Rate 20 H 19 H 20 H Respiratory Effort Respiratory Depth Blood Pressure 112/85 H 145/80 H 151/98 H Blood Pressure Mean 94 101 115 Pulse Ox 92 94 98 Oxygen Delivery Method Room Air 11/09/24 15:00 11/09/24 16:19 Temperature Temperature Source Pulse Rate 78 64 Respiratory Rate 20 H Respiratory Effort Respiratory Depth Blood Pressure 130/90 H 121/69 H Blood Pressure Mean 103 86 Pulse Ox 94 Oxygen Delivery Method Positive well nourished and well developed Constitutional Narrative: BMI is 34.0 General Appearance ED: well developed and NAD HEENT Reports moist mucous membranes Neck no lymphadenopathy, supple, no meningeal signs and no JVD Neck Narrative: Trachea is midline. Resp normal respiratory effort Auscultation: diminished lung sounds left Cardio regular rate and regular rhythm GI non-tender and non-distended Palpation: soft Neuro oriented x3, CN's II-XII intact bilaterally and no sensory deficits noted [employer] Coma Scale: document GCS findings Spontaneous Obeys Commands Oriented 15 Sensorium / Orientation: alert Speech: speech normal Motor Exam: strength 5/5 throughout MDM MDM MDM Narrative Medical decision making narrative: Patient was advised of his x-ray findings. Patient was advised of the need for chest tube placement. Patient was advised of the risks and benefits of chest tube placement. Patient is agreeable to proceed with chest tube placement. Allquestions were answered. Radiography Diagnostic Testing: Clinical Impression(s) from Imaging Studies Chest X-Ray 11/09/24 11:50 IMPRESSION: Chest tube catheter placed in the left upper lung field. Persistent pneumothorax. Clinical correlation is recommended. Reading Location: [facility] Chest X-Ray 11/09/24 13:30 IMPRESSION: Persistent left-sided pneumothorax, unchanged. Clinical correlation is recommended. Reading Location: [facility]- Chest X-Ray 11/09/24 14:25 IMPRESSION: Left chest tube is in place. Reading Location: [facility] Treatment and Re-Evaluation :: After informed consent, the left anterior chest was cleaned and prepped in a sterile manner. 1% lidocaine was used locally. A pneumo dart tube was then inserted. Dressing was applied. Repeat chest x-ray was obtained. There is no reexpansion of the lung. The pneumo dart was then hooked up to suction and repeat chest x-ray was obtained. There is no reexpansion. A lateral chest x-ray was obtained. The pneumo dart tube appeared to be kinked. This was withdrawn. The chest was prepped again in a sterile manner and was draped. I attempted to place a pigtail catheter over a guidewire. The pleural cavity was punctured and there was return. Guidewire was advanced. However, the pigtail catheter was unable to be advanced over the guidewire. This was all withdrawn. I asked Dr. Bassett to come in and assist with this. She was able to insert a small tube over a needle. There is good air return with this. The tube was then hooked up to suction. The tube was sutured in place. Iodoform gauze was placed around the tube and a occlusive dressing was placed over this. Repeat chest x-ray was obtained. There is reexpansion of the lung. Case was discussedwith Dr. Bradford. He will admit the patient to his service for observation. Patient and family understood and were agreeable with the plan. All questions were answered. Procedures Other Procedures Procedure(s): After informed consent, the left anterior chest was cleaned and prepped in a sterile manner. 1% lidocaine was used locally. A pneumo dart tubewas then inserted. Dressing was applied. Repeat chest x-ray was obtained. There is no reexpansion of the lung. The pneumo dart was then hooked up to suction and repeat chest x-ray was obtained. There is no reexpansion. A lateral chest x-ray was obtained. The pneumo dart tube appeared to be kinked. This was withdrawn. The chest was prepped again in a sterile manner and was draped. I attempted to place a pigtail catheter over a guidewire. The pleural cavity was punctured and there was return. Guidewire was advanced. However, the pigtail catheter was unable to be advanced over the guidewire. This was allwithdrawn. I asked Dr. Bassett to come in and assist with this. She was able toinsert a small tube over a needle. There is good air return with this. The tube was then hooked up to suction. The tube was sutured in place. Iodoform gauze was placed around the tube and a occlusive dressing was placed over this. Repeat chest x-ray was obtained. There is reexpansion of the lung. Discharge Plan Triage Chief Complaint: Shortness of Breath ED Provider: Aston Lemos Dx/Rx/DC Orders Clinical Impression: Pneumothorax, Dyspnea Prescriptions: No Action NK Primary Care Provider: Kristie Herndon Referrals: Kristie Herndon MD [Primary Care Provider] - Print Language: Finnish Disposition Disposition: Acute Care Hospital [facility] What to do if you have Problems For any increased pain, shortness of breath, bleeding, nausea or vomiting, chestpain, or any unexpected problems, contact your Primary Care Provider. Call [facility] ([phone]) or report to the closest Emergency Room. Call 911 if necessary. 11/09/24 1717 <Electronically signed by Aston Lemos DO> Cosigner Signature (if applicable): CC: Dr. Kristie Herndon MD ~ Signed [facility] Work Phone: [phone] [phone] History and physical note [facility] Medical Records Department [address] [place] [address] History & Physical Exam 11/09/24 1749 MR#: [id number] Acct: [id number] Name: YAIR JONES Rep #:[id number] : 1970 54 From: Nilton Matos PCP: Dr. Kristie Herndon MD Status:ADM TED Location: [address] - General General Date of Admission: 11/09/24 Chief Complaint: Acute onset of shortness of breath HPI Narrative YAIR JONES, is a 54 M who presents to [facility] with complaints of 1-1/2 weeks ofprogressive shortness of breath and decreased exercise tolerance. He states he initially tried to self medicate for sensitivities to pollen but the shortness of breath became so progressive he told his he needed to seek medical attention. He states he was no longer able to even walk a short distance without becoming winded. He was evaluated atoutpatient setting with chest x-ray which showed a large left pneumothorax and was directed to present to the emergency department. In the emergency department patient underwent chest tube placement with a pneumodart but this appeared to kink and so emergency medicine used a pigtail catheterand there was immediate reexpansion of the lung. They discussed possible outpatient management of this pneumothorax but I recommended inpatient admissionwith a goal of hopefully removing patient's chest tube sooner and minimizing therisk for emergency. Through further discussion patient admits to recent trauma in August of this year where he fell approximately 8 feet from height to the frozen ground below. He states that although he fell onto hisleft hip a plank fell on top of his chest and cause significant chest discomfort. He reports a delayed presentationapproximately 24 hours after his trauma to the emergency department. Here CT chest was performed demonstrating small pneumothorax and a rib fracture. He wasdischarged home with word that he may have a small pneumonia in the lung as well. He states that he did well overall followingthis time until a week and ahalf ago, but his who was present, suggest that there were lingering concerns for her along. Patient has no significant past medical history but is quick to admit he does not regularly follow with a medical provider. He does admit to a smoking history of approximately 20 pack years (10 yearsat 2 packs/day). He states that he underwent smoking cessation approximately 15 years ago. [facility] Home Medications ?Medication ?Instructions ?Recorded ?Last Taken ?Type NK 11/09/24 Unknown History Allergy/AdvReac Type Severity Reaction Status Date / Time No Known Allergies Allergy Verified 11/09/24 10:40 Surgical History (Updated 11/09/24 @ 11:[address] Aston Lemos, ) S/P ORIF (open reduction internal fixation) fracture Social History Smoking Status: Former smoker Vital Signs Vital Signs Vital Signs: 11/09/24 10:20 11/09/24 10:30 11/09/24 11:20 Temperature 97.6 F L Temperature Source Temporal Pulse Rate 73 46 L Respiratory Rate 19 H 29 H Respiratory Effort Short of Breath Respiratory Depth Shallow Blood Pressure 156/98 H 128/77 H Blood Pressure Mean 117 94 Pulse Ox 95 98 Oxygen Delivery Method Room Air Room Air Room Air 11/09/24 12:00 11/09/24 13:00 11/09/24 14:00 Temperature Temperature Source Pulse Rate 76 78 67 Respiratory Rate 20 H 19 H 20 H Respiratory Effort Respiratory Depth Blood Pressure 112/85 H 145/80 H 151/98 H Blood Pressure Mean 94 101 115 Pulse Ox 92 94 98 Oxygen Delivery Method Room Air 11/09/24 15:00 11/09/24 16:19 11/09/24 16:32 Temperature 98.3 F Temperature Source Pulse Rate 78 64 64 Respiratory Rate 20 H 20 H Respiratory Effort Respiratory Depth Blood Pressure 130/90 H 121/69 H 121/69 H Blood Pressure Mean 103 86 86 Pulse Ox 94 96 Oxygen Delivery Method 11/09/24 17:00 Temperature Temperature Source Pulse Rate 72 Respiratory Rate 19 H Respiratory Effort Respiratory Depth Blood Pressure 152/92 H Blood Pressure Mean 112 Pulse Ox 94 Oxygen Delivery Method Weight Weight: 250 lb 8 oz Body Mass Index (BMI) 34.0 Physical Exam Const alert, oriented x3, no apparent distress and well nourished General Appearance: cooperative Resp normal respiratory effort Resp Narrative: Patient with small bore chest tube to the left upper chest. There is a scant amount of bloody drainage about the insertion site. Chest tube initially connected with a Heimlich valve in line but once this was removed there is a small intermittent 1 column of air leak on the chest tube Pleur-evac system. Results Imaging Radiology Impression Chest X-Ray 11/09/24 11:50 IMPRESSION: Chest tube catheter placed in the left upper lung field. Persistent pneumothorax. Clinical correlation is recommended. Reading Location: [facility] Chest X-Ray 11/09/24 13:30 IMPRESSION: Persistent left-sided pneumothorax, unchanged. Clinical correlation is recommended. Reading Location: [facility]- Chest X-Ray 11/09/24 14:25 IMPRESSION: Left chest tube is in place. Reading Location: [facility] Chest X-Ray 11/09/24 16:28 IMPRESSION: No Acute Findings. Reading Location: [facility] Assessment & Plan Assessment/Plan (1) Pneumothorax: PLAN: Patient 54-year-old male who presents with acute dyspnea and outpatient imaging that showed large left pneumothorax. Indeed, x-ray imaging is reviewed and showed complete collapse of the left lung but there are no signs of tension phenomenon. Chest tube was successfully placed by emergency medicine and there has been reexpansion of the lung. Upon my evaluation patient does have a small intermittent airleak at -20 cm of water. It remains unclear to me what the etiology for patient's pneumothorax is given an antecedent history of trauma andleft rib fracture in August of this year. Additionally, CT imaging from his evaluation following that trauma showed apparent blebs in the lingula of the left lung and he has a history of tobacco use. I find it highly unusual for such a late presentation with a pneumothorax if this is related to his trauma. Instead, I suspect this is related to ableb rupture from the finding seen on his CT imaging. Regardless, I discussed with him conservativemanagement with keeping the chest tube to suction while he demonstrates evidence of an air leak. Will plan to repeat his chest x-ray in the a.m. If there is no air leak at that time would waterseal and determine timing for additional imaging/possible chest tube discontinuation. Nilton Bradford MD General Surgery Endocrine Surgery Pager: [facility] [address] [place] [address], [facility], [address] [place] [id number] Office: [phone] Charges/Coding Visit Charges Inpatient E&M: 57025 Init Hosp L2 11/09/24 1836 Cosigner Signature (if applicable): CC: Dr. Kristie Herndon MD; Dr. Nilton Bradford MD~ Signed [facility]05-09-2025 [facility] Medical Records Department [address] [place] [address] History Physical Exam 11/09/24 1749 MR#: [id number] Acct: [id number] Name: YAIR JONES Rep #: [id number] : 1970 54 From: Nilton Bradford MD PCP: Dr. Kristie Herndon MD Status:ADM TED Location: [place] [address] HPI - General General Date of Admission: 11/09/24 Chief Complaint: Acute onset of shortness of breath HPI Narrative YAIR JONES, is a 54 M who presents to [facility] with complaints of 1-1/2 weeks of progressive shortness of breath and decreased exercise tolerance. He states he initially tried to self medicate for sensitivities to pollen but the shortness of breath became so progressive he told his he needed to seek medical attention. He states he was no longer able to even walk a short distance without becoming winded. He was evaluated at outpatient setting with chest x-ray which showed a large left pneumothorax and was directed to present to the emergency department. In the emergency department patient underwent chest tube placement with a pneumo dart but this appeared to kink and so emergency medicine used a pigtail catheter and there was immediate reexpansion of the lung. They discussed possible outpatient management of this pneumothorax but I recommended inpatient admission with a goal of hopefully removing patient's chest tube sooner and minimizing the risk for emergency. Through further discussion patient admits to recent trauma in August of this year where he fell approximately 8 feet from height to the frozen ground below. He states that although he fell onto his left hip a plank fell on top of his chest and cause significant chest discomfort. He reports a delayed presentation approximately 24 hours after his trauma to the emergency department. Here CT chest was performed demonstrating small pneumothorax and a rib fracture. He was discharged home with word that he may have a small pneumonia in the lung as well. He states that he did well overall following this time until a week and a half ago, but his who was present, suggest that there were lingering concerns for her along. Patient has no significant past medical history but is quick to admit he does not regularly follow with a medical provider. He does admit to a smoking history of approximately 20 pack years (10 years at 2 packs/day). He states that he underwent smoking cessation approximately 15 years ago. [facility] Home Medications ???Medication ???Instructions ???Recorded ???Last Taken ???Type NK 11/09/24 Unknown History Allergy/AdvReac Type Severity Reaction Status Date / Time No Known Allergies Allergy Verified 11/09/24 10:40 Surgical History (Updated 11/09/24 @ 11:[address] Aston Lemos DO) S/P ORIF (open reduction internal fixation) fracture Social History Smoking Status: Former smoker Vital Signs Vital Signs Vital Signs: 11/09/24 10:20 11/09/24 10:30 11/09/24 11:20 Temperature 97.6 F L Temperature Source Temporal Pulse Rate 73 46 L Respiratory Rate 19 H 29 H Respiratory Effort Short of Breath Respiratory Depth Shallow Blood Pressure 156/98 H 128/77 H Blood Pressure Mean 117 94 Pulse Ox 95 98 Oxygen Delivery Method Room Air Room Air Room Air 11/09/24 12:00 11/09/24 13:00 11/09/24 14:00 Temperature Temperature Source Pulse Rate 76 78 67 Respiratory Rate 20 H 19 H 20 H Respiratory Effort Respiratory Depth Blood Pressure 112/85 H 145/80 H 151/98 H Blood Pressure Mean 94 101 115 Pulse Ox 92 94 98 Oxygen Delivery Method Room Air 11/09/24 15:00 11/09/24 16:19 11/09/24 16:32 Temperature 98.3 F Temperature Source Pulse Rate 78 64 64 Respiratory Rate 20 H 20 H Respiratory Effort Respiratory Depth Blood Pressure 130/90 H 121/69 H 121/69 H Blood Pressure Mean 103 86 86 Pulse Ox 94 96 Oxygen Delivery Method 11/09/24 17:00 Temperature Temperature Source Pulse Rate 72 Respiratory Rate 19 H Respiratory Effort Respiratory Depth Blood Pressure 152/92 H Blood Pressure Mean 112 Pulse Ox 94 Oxygen Delivery Method Weight Weight: 250 lb 8 oz Body Mass Index (BMI) 34.0 Physical Exam Const alert, oriented x3, no apparent distress and well nourished General Appearance: cooperative Resp normal respiratory effort Resp Narrative: Patient with small bore chest tube to the left upper chest. There is a scant amount of bloody drainage about the insertion site. Chest tube initially connected with a Heimlich valve in line but once this was removed there is a small intermittent 1 column of air leak on the chest tube Pleur- evac system. Results Imaging (more content not included)...[facility]05-09-2025 Discharge summary [facility] Medical Records Department [address] [place] [address] Emergency Department Summary 11/09/24 MR#: [id number] Acct: [id number] Name: YAIR JONES Rep #:[id number] : 1970 54 From: Aston Uriarte PCP: Dr. Kristie Herndon MD Status:REG ER Location: ED HPI History of Present Illness Chief Complaint: Shortness of Breath Onset/Context/Timing Onset: Weeks (1.5) Context: gradual Timing: Continuous Quality: Positive for Dyspnea on exertion Worsened by: Exertion Relieved by: Rest Associated Symptoms Negative for cough, rhinorrhea, post nasal drip, ear pain, fever, sore throat, chills, sweats, clear sputum, white sputum, yellow sputum or green sputum Chest Pain: Positive for None Narrative Narrative: Patient presents with shortness of breath that has been worse for the past week and a half patient states it is gradually gotten worse. Patient states his breathing is worse with any exertion. Patient states it is better with rest. Patient denies any cough or fevers. Patient went to his primary care physician today who ordered an outpatient chest x-ray. This was interpreted by the radiologist as a complete pneumothorax on the left. Patient was then referred to the emergency department. PE Risk Factors: Negative for Cancer, OCP + Smoking + > 35, Prior DVT or PE, Recent immobilization, Recent surgery or Recent travel PFSH [facility] Home Medications ?Medication ?Instructions ?Recorded ?Last Taken ?Type NK 11/09/24 Unknown History Allergy/AdvReac Type Severity Reaction Status Date / Time No Known Allergies Allergy Verified 11/09/24 10:40 Surgical History (Updated 11/09/24 @ 11:[address] Aston Lemos, ) S/P ORIF (open reduction internal fixation) fracture Social History Smoking Status: Former smoker ROS ROS ED Constitutional Constitutional ED: Denies chills or fever(s) Eyes Eyes: Denies blurry vision or change in vision ENT ENT ED: Denies rhinorrhea or sore throat Cardiovascular Cardiovascular: Denies chest pain or palpitations Respiratory/Chest Respiratory/Chest: Reports dyspnea; Denies cough Gastrointestinal Gastrointestinal: Denies nausea or vomiting Genitourinary Genitourinary ED: Denies dysuria or hematuria Musculoskeletal Musculoskeletal: Denies back pain or neck pain Integumentary Denies abscess or rash Neurologic Neurologic: Denies headache(s) or weakness Allergic/Immunologic Allergic/Immunologic ED: Denies mouth swelling or urticaria EXAM Physical Exam Const Vital Signs: 11/09/24 10:20 11/09/24 10:30 11/09/24 11:20 Temperature 97.6 F L Temperature Source Temporal Pulse Rate 73 46 L Respiratory Rate 19 H 29 H Respiratory Effort Short of Breath Respiratory Depth Shallow Blood Pressure 156/98 H 128/77 H Blood Pressure Mean 117 94 Pulse Ox 95 98 Oxygen Delivery Method Room Air Room Air Room Air 11/09/24 12:00 11/09/24 13:00 11/09/24 14:00 Temperature Temperature Source Pulse Rate 76 78 67 Respiratory Rate 20 H 19 H 20 H Respiratory Effort Respiratory Depth Blood Pressure 112/85 H 145/80 H 151/98 H Blood Pressure Mean 94 101 115 Pulse Ox 92 94 98 Oxygen Delivery Method Room Air 11/09/24 15:00 11/09/24 16:19 Temperature Temperature Source Pulse Rate 78 64 Respiratory Rate 20 H Respiratory Effort Respiratory Depth Blood Pressure 130/90 H 121/69 H Blood Pressure Mean 103 86 Pulse Ox 94 Oxygen Delivery Method Positive well nourished and well developed Constitutional Narrative: BMI is 34.0 General Appearance ED: well developed and NAD HEENT Reports moist mucous membranes Neck no lymphadenopathy, supple, no meningeal signs and no JVD Neck Narrative: Trachea is midline. Resp normal respiratory effort Auscultation: diminished lung sounds left Cardio regular rate and regular rhythm GI non-tender and non-distended Palpation: soft Neuro oriented x3, CN's II-XII intact bilaterally and no sensory deficits noted [employer] Coma Scale: document GCS findings Spontaneous Obeys Commands Oriented 15 Sensorium / Orientation: alert Speech: speech normal Motor Exam: strength 5/5 throughout MDM MDM MDM Narrative Medical decision making narrative: Patient was advised of his x-ray findings. Patient was advised of the need for chest tube placement. Patient was advised of the risks and benefits of chest tube placement. Patient is agreeable to proceed with chest tube placement. Allquestions were answered. Radiography Diagnostic Testing: Clinical Impression(s) from Imaging Studies Chest X-Ray 11/09/24 11:50 IMPRESSION: Chest tube catheter placed in the left upper lung field. Persistent pneumothorax. Clinical correlation is recommended. Reading Location: [facility] Chest X-Ray 11/09/24 13:30 IMPRESSION: Persistent left-sided pneumothorax, unchanged. Clinical correlation is recommended. Reading Location: [facility] Chest X-Ray 11/09/24 14:25 IMPRESSION: Left chest tube is in place. Reading Location: [facility] Treatment and Re-Evaluation :: After informed consent, the left anterior chest was cleaned and prepped in a sterile manner. 1% lidocaine was used locally. A pneumo dart tube was then inserted. Dressing was applied. Repeat chest x-ray was obtained. There is no reexpansion of the lung. The pneumo dart was then hooked up to suctionand repeat chest x-ray was obtained. There is no reexpansion. A lateral chest x-ray was obtained. The pneumo dart tube appeared to be kinked. This was withdrawn. The chest was prepped again in a sterile manner and was draped. I attempted to place a pigtail catheter over a guidewire. The pleural cavity was punctured and there was return. Guidewire was advanced. However, the pigtail catheter was unable to be advanced over the guidewire. This was all withdrawn. I asked Dr. Bassett to come in and assist with this. She was able to insert a small tube over a needle. There is good air return with this. The tube was then hooked up to suction. The tube was sutured in place. Iodoform gauze was placed around the tube and a occlusive dressing was placed over this. Repeat chest x-ray was obtained. There is reexpansion of the lung. Case was discussedwith Dr. Bradford. He will admit the patient to his service for observation. Patient and family understood and were agreeable with the plan. All questions were answered. Procedures Other Procedures Procedure(s): After informed consent, the left anterior chest was cleaned and prepped in a sterile manner. 1% lidocaine was used locally. A pneumo dart tubewas then inserted. Dressing was applied. Repeat chest x-ray was obtained. There is no reexpansion of the lung. The pneumo dart was then hooked up to suction and repeat chest x-ray was obtained. There is no reexpansion. A lateral chest x-ray was obtained. The pneumo dart tube appeared to be kinked. This was withdrawn. The chest was prepped again in a sterile manner and was draped. I attempted to place a pigtail catheter over a guidewire. The pleural cavity was punctured and there was return. Guidewire was advanced. However, the pigtail cat heter was unable to be advanced over the guidewire. This was allwithdrawn. I asked Dr. Bassett to come in and assist with this. She was able toinsert a small tube over a needle. There is good air return with this. The tube was then hooked up to suction. The tube was sutured in place. Iodoform gauze was placed around the tube and a occlusive dressing was placed over this. Repeat chest x-ray was obtained. There is reexpansion of the lung. Discharge Plan Triage Chief Complaint: Shortness of Breath ED Provider: Aston Lemos Dx/Rx/DC Orders Clinical Impression: Pneumothorax, Dyspnea Prescriptions: No Action NK Primary Care Provider: Kristie Herndon Referrals: Kristie Herndon MD [Primary Care Provider] - Print Language: Finnish Disposition Disposition: [facility] What to do if you have Problems For any increased pain, shortness of breath, bleeding, nausea or vomiting, chestpain, or any unexpected problems, contact your Primary Care Provider. Call [facility] ([phone]) or report tothe closest Emergency Room. Call 911 if necessary. 11/09/24 1717 Cosigner Signature (if applicable): CC: Dr. Kristie Herndon MD ~ Signed [facility]05-09-2025 Radiology Diagnostic study note [facility] Imaging Services [address] [place], [place] [address] Chest 1 View (Portable) MR#: [id number] Acct: [id number] Name: YAIR JONES Rep #: [id number] : 1970 M 54 From: Evy Parker MD PCP: Dr. Kristie Herndon MD Status: REG ER Study:Chest 1 View (Portable) Date of Exam: 11/09/24 Exam# [id number] Ordering Dr: Aston Lemos DO PROCEDURE: CHEST 1 VIEW (PORTABLE) 11/09/2024 REASON FOR EXAM: CHEST TUBE PLACEMENT TECHNIQUE: Frontal view of the chest. COMPARISON: 11/10/2019 FINDINGS: Hardware: Left upper lobe chest tube. Heart: Cardiac and mediastinal contours are stable. Lungs: Linear opacity left mid lung zone, compatible with atelectasis. No pneumothorax. No pleural effusion. Bones: The bones are unremarkable. Other: RAD/Chest 1 View (Portable) IMPRESSION: No Acute Findings. Reading Location: [facility] CC: Dr. Aston Lemos DO; Dr. Kristie Herndon MD ~ Loan Assistant: Signed [facility]05-09-2025 Radiology Diagnostic study note [facility] Imaging Services [address] [place], [place] [address] Chest 1 View (Portable) MR#: [id number] Acct: [id number] Name: MULDOONYAIR Rep #: [id number] : 1970 M 54 From: Viky Argueta MD PCP: Dr. Kristie Herndon MD Status: REG ER Study:Chest 1 View (Portable) Date of Exam: 11/09/24 Exam# [id number] Ordering Dr: Aston Lemos DO PROCEDURE: CHEST 1 VIEW (PORTABLE) 11/09/2024 REASON FOR EXAM: PNEUMOTHORAX Check chest tube placement. Follow-up lateral. TECHNIQUE: Frontal view of the chest. COMPARISON: Earlier study dated 11/09/2024 FINDINGS: A left chest tube is in place. No other significant findings. RAD/Chest 1 View (Portable) IMPRESSION: Left chest tube is in place. Reading Location: [facility] CC: Dr. Aston Lemos DO; Dr. Kritsie Herndon MD ~ Loan Assistant: Signed [facility]05-09-2025 Radiology Diagnostic study note [facility] Imaging Services [address] [place] [address] Chest 1 View (Portable) MR#: [id number] Acct: [id number] Name: FRANNY JONESNE Danii Rep #: [id number] : 1970 M 54 From: Keara Reyes MD PCP: Dr. Kristie Herndon MD Status: REG ER Study:Chest 1 View (Portable) Date of Exam: 11/09/24 Exam# [id number] Ordering Dr: Aston Lemos DO EXAM: XR Chest, 1 View CLINICAL INDICATION: PNEUMOTHORAX TECHNIQUE: Frontal view of the chest. COMPARISON: Earlier today FINDINGS: LUNGS AND PLEURAL SPACES: Persistent left-sided pneumothorax, unchanged. Clinical correlation is recommended. HEART: Unremarkable. No cardiomegaly. MEDIASTINUM: Unremarkable. Normal mediastinal contour. BONES/JOINTS: Unremarkable. No acute fracture. TUBES, LINES AND DEVICES: Left-sided chest tube catheter unchanged. RAD/Chest 1 View (Portable) IMPRESSION: Persistent left-sided pneumothorax, unchanged. Clinical correlation is recommended. Reading Location: [facility] CC: Dr. Aston Lemos DO; Dr. Kristie Herndon MD ~ Loan Assistant: Signed [facility]05-09-2025 Radiology Diagnostic study note [facility] Imaging Services [address] [place], [place] [id number] Chest 1 View (Portable) MR#: [id number] Acct: [id number] Name: YAIR JONES Rep #: [id number] : 1970 M 54 From: Keara Reyes MD PCP: Dr. Kristie Herndon MD Status: [facility] ER Study:Chest 1 View (Portable) Date of Exam: 11/09/24 Exam# [id number] Ordering Dr: Aston Lemos DO EXAM: XR Chest, 1 View CLINICAL INDICATION: CHEST TUBE PLACEMENT TECHNIQUE: Frontal view of the chest. COMPARISON: Earlier today FINDINGS: LUNGS AND PLEURAL SPACES: See below. HEART: Unremarkable. No cardiomegaly. MEDIASTINUM: Unremarkable. Normal mediastinal contour. BONES/JOINTS: Unremarkable. No acute fracture. TUBES, LINES AND DEVICES: Chest tube catheter placed in the left upper lung field. Persistent pneumothorax. Clinical correlation is recommended. RAD/Chest 1 View (Portable) IMPRESSION: Chest tube catheter placed in the left upper lung field. Persistent pneumothorax. Clinical correlation is recommended. Reading Location: [facility] CC: Dr. Aston Lemos DO; Dr. Kristie Herndon MD ~ Loan Assistant: Signed [facility]05-09-2025 Radiology Diagnostic study note [facility] Imaging Services [address] [place] [address] Chest PA and Lateral MR#: [id number] Acct: [id number] Name: YAIR JONES Rep #: [id number] : 1970 M 54 From: Viky Argueta MD PCP: Dr. Kristie Herndon MD Status: REG CLI Study:Chest PA and Lateral Date of Exam: 11/09/24 Exam# [id number] Ordering Dr: Luz Maria Herndon MD PROCEDURE: CHEST PA AND LATERAL 11/09/2024 REASON FOR EXAM: SOB, DYSPNEA TECHNIQUE: Frontal and lateral views of the chest. COMPARISON: CT chest dated 08/11/2024 FINDINGS: Lungs: A total left lung pneumothorax. Pleura: No pleural effusions, thickening, or pneumothorax. Heart: Normal in size and configuration. Suspicion of mild pneumopericardium and/or pneumomediastinum. Mediastinum/[place]: Mild rightward shift of the mediastinum. Great vessels: Unremarkable. Bones/soft tissues: Unremarkable. RAD/Chest PA and Lateral IMPRESSION: Right tension pneumothorax with total collapse of the left lung. Suspicion of mild pneumopericardium and/or pneumomediastinum. Findings were relayed to the ED physician at 1020 hours. Reading Location: [facility] CC: Dr. Kristie Herndon MD ~ Loan Assistant: [facility] Diagnosis Onset Date Resolution Status Admit Date Dyspnea acute November 09, 2024 6:07pm Pneumothorax acute November 09 6:07pm [facility] Work Phone: History and physical note Author Nilton Bradford [facility] Note Date/Time November 09, 2024 6:36pm [facility] Medical Records Department [address] [place] [address] History & Physical Exam 11/09/24 1749 MR#: [id number] Acct: [id number] Name: YAIR JONES Rep #:[id number] : 1970 54 From: Nilton Matos PCP: Dr. Kristie Herndon MD Status:ADM TED Location: [facility] [id number] HPI - General General Date of Admission: 11/09/24 Chief Complaint: Acute onset of shortness of breath HPI Narrative YAIR JONES, is a 54 M who presents to [facility] with complaints of 1-1/2 weeks of progressive shortness of breath and decreased exercise tolerance. He states he initially tried to self medicate for sensitivities to pollen but the shortness of breath became so progressive he told his he needed to seek medical attention. He states he was no longer able to even walk a short distance without becoming winded. He was evaluated atoutpatient setting with chest x-ray which showed a large left pneumothorax and was directed to present to the emergency department. In the emergency department patient underwent chest tube placement with a pneumodart but this appeared to kink and so emergency medicine used a pigtail catheterand there was immediate reexpansion of the lung. They discussed possible outpatient management of this pneumothorax but I recommended inpatient admissionwith a goal of hopefully removing patient's chest tube sooner and minimizing therisk for emergency. Through further discussion patient admits to recent trauma in August of this year where he fell approximately 8 feet from height to the frozen ground below. He states that although he fell onto his left hip a plank fell on top of his chest and cause significant chest discomfort. He reports a delayed presentationapproximately 24 hours after his trauma to the emergency department. Here CT chest was performed demonstrating small pneumothorax and a rib fracture. He wasdischarged home with word that he may have a small pneumonia in the lung as well. He states that he did well overall following this time until a week and ahalf ago, but his who was present, suggest that there were lingering concerns for her along. Patient has no significant past medical history but is quick to admit he does not regularly follow with a medical provider. He does admit to a smoking history of approximately 20 pack years (10 years at 2 packs/day). He states that he underwent smoking cessation approximately 15 years ago. PFSH Home Medications ?Medication ?Instructions ?Recorded ?Last Taken ?Type NK 11/09/24 Unknown History Allergy/AdvReac Type Severity Reaction Status Date / Time No Known Allergies Allergy Verified 11/09/24 10:40 Surgical History (Updated 11/09/24 @ 11:[address] Aston Lemos DO) S/P ORIF (open reduction internal fixation) fracture Social History Smoking Status: Former smoker Vital Signs Vital Signs Vital Signs: 11/09/24 10:20 11/09/24 10:30 11/09/24 11:20 Temperature 97.6 F L Temperature Source Temporal Pulse Rate 73 46 L Respiratory Rate 19 H 29 H Respiratory Effort Short of Breath Respiratory Depth Shallow Blood Pressure 156/98 H 128/77 H Blood Pressure Mean 117 94 Pulse Ox 95 98 Oxygen Delivery Method Room Air Room Air Room Air 11/09/24 12:00 11/09/24 13:00 11/09/24 14:00 Temperature Temperature Source Pulse Rate 76 78 67 Respiratory Rate 20 H 19 H 20 H Respiratory Effort Respiratory Depth Blood Pressure 112/85 H 145/80 H 151/98 H Blood Pressure Mean 94 101 115 Pulse Ox 92 94 98 Oxygen Delivery Method Room Air 11/09/24 15:00 11/09/24 16:19 11/09/24 16:32 Temperature 98.3 F Temperature Source Pulse Rate 78 64 64 Respiratory Rate 20 H 20 H Respiratory Effort Respiratory Depth Blood Pressure 130/90 H 121/69 H 121/69 H Blood Pressure Mean 103 86 86 Pulse Ox 94 96 Oxygen Delivery Method 11/09/24 17:00 Temperature Temperature Source Pulse Rate 72 Respiratory Rate 19 H Respiratory Effort Respiratory Depth Blood Pressure 152/92 H Blood Pressure Mean 112 Pulse Ox 94 Oxygen Delivery Method Weight Weight: 250 lb 8 oz Body Mass Index (BMI) 34.0 Physical Exam Const alert, oriented x3, no apparent distress and well nourished General Appearance: cooperative Resp normal respiratory effort Resp Narrative: Patient with small bore chest tube to the left upper chest. There is a scant amount of bloody drainage about the insertion site. Chest tube initially connected with a Heimlich valve in line but once this was removed there is a small intermittent 1 column of air leak on the chest tube Pleur-evac system. Results Imaging Radiology Impression Chest X-Ray 11/09/24 11:50 IMPRESSION: Chest tube catheter placed in the left upper lung field. Persistent pneumothorax. Clinical correlation is recommended. Reading Location: [facility] Chest X-Ray 11/09/24 13:30 IMPRESSION: Persistent left-sided pneumothorax, unchanged. Clinical correlation is recommended. Reading Location: [facility] Chest X-Ray 11/09/24 14:25 IMPRESSION: Left chest tube is in place. Reading Location: [facility] Chest X-Ray 11/09/24 16:28 IMPRESSION: No Acute Findings. Reading Location: [facility] Assessment & Plan Assessment/Plan (1) Pneumothorax: PLAN: Patient 54-year-old male who presents with acute dyspnea and outpatient imaging that showed large left pneumothorax. Indeed, x-ray imaging is reviewed and showed complete collapse of the left lung but there are no signs of tension phenomenon. Chest tube was successfully placed by emergency medicine and there has been reexpansion of the lung. Upon my evaluation patient does have a small intermittent airleak at -20 cm of water. It remains unclear to me what the etiology for patient's pneumothorax is given an antecedent history of trauma andleft rib fracture in August of this year. Additionally, CT imaging from his evaluation following that trauma showed apparent blebs in the lingula of the left lung and he has a history of tobacco use. I find it highly unusual for such a late presentation with a pneumothorax if this is related to his trauma. Instead, I suspect this is related to a bleb rupture from the finding seen on his CT imaging. Regardless, I discussed with him conservative management with keeping the chest tube to suction while he demonstrates evidence of an air leak. Will plan to repeat his chest x-ray in the a.m. If there is no air leak at that time would waterseal and determine timing for additional imaging/possible chest tube discontinuation. Nilton Bradford MD General Surgery Endocrine Surgery Pager: [facility] [address] [place] [address], [address] [place] [id number] Office: [phone] Charges/Coding Visit Charges Inpatient E&M: 66158 Init Hosp L2 11/09/24 1836 <Electronically signed by Nilton Bradford MD> Cosigner Signature (if applicable): CC: Dr. Kristie Herndon MD; Dr. Nilton Bradford MD~ Signed [facility] Work Phone: Reason for referral (narrative)No reason for referral information availableWOhioHealth [facility] Work Phone: Summary Purpose Family History No Family History Records FoundNo Family History Records Found Advance Directives No Advanced Directives Records Found Advance Directive Response Recorded Date/ Time Living Will No August 11 11:17am Do you have a Healthcare Power of Data Center Engineer? No August 11, 2024 11:17am Do you have a Healthcare Power of Data Center Engineer? No November 09, 2024 10:30am Advance Directive Response Recorded Date/ Time Living Will No August 11 11:17am Do you have a Healthcare Power of Data Center Engineer? No August 11, 2024 11:17am Do you have a Healthcare Power of Data Center Engineer? No November 09, 2024 6:49pm Chief Complaint and Reason for Visit Chief Complaint Admit Date FALL August 11, 2024 9 :03am SOB, DYSPNEA November 09, 2024 9:50am LEFT PNEUMOTHORAX November 09, 2024 6:07pm Reason for Visit Admit Date Dyspnea November 09, 2024 6:07pm Pneumothorax November 09, 2024 6:07pm Chief Complaint Admit Date FALL August 11, 2024 9 :03am SOB, DYSPNEA November 09, 2024 9:50am LEFT PNEUMOTHORAX November 09, 2024 6:07pm LEFT PNEUMOTHORAX November 10, 2024 10:05 am LEFT PNEUMOTHORAX November 10, 2024 1:55p m LEFT PNEUMOTHORAX November 11, 2024 1:33p m Reason for Visit Admit Date Dyspnea November 10, 2024 1:55p m Pneumothorax November 10, 2024 1:55p m Additional Source Comments (unrecognized sect ion and content) No Status Records FoundNo Status Records Found INFORMATION SOURCE (unrecogn ized section and content) DATE CREATED AUTHOR 10/18/2018 [facility] DATE CREATED AUTHOR AUTHOR'S ORGANIZ ATION 12/01/2024 [facility] Care Teams (unrecognized sec tion and content) Team Status: Active Member Role Status Dates Dr. Kristie Herndon MD Primary Care Provider Active Team Status: Inactive Member Role Status Dates Dr. Santy River MD Attending Provider Active S tart: August 11, 2024 End: August 11, 2024 Dr. Santy River MD Emergency Provider Active S tart: August 11, 2024 End: August 11, 2024 No Primary Care Physician Primary Care Provider Active Start: August 11, 2024 End: August 11, 2024 Team Status: Active Member Role Status Dates Dr. Kristie Herndon MD Primary Care Provider Active Start: November 09, 2024 Dr. Kristie Herndon MD Attending Provider Active Start: November 09, 2024 Dr. Kristie Herndon MD Referring Provider Active Start: November 09, 2024 Team Status: Active Member Role Status Dates Dr. Kristie Herndon MD Primary Care Provider Active Start: November 09, 2024 Dr. Aston Lemos DO Emergency Provider Active Start: November 09, 2024 Dr. Nilton Bradford MD Admit Provider Active Sta rt: November 09, 2024 Dr. Nilton Bradford MD Attending Provider Active Start: November 09, 2024 Team Status: Active Member Role Status Dates Dr. Kristie Herndon MD Primary Care Provider Active Start: November 09, 2024 Dr. Aston Lemos DO Emergency Provider Active Start: November 09, 2024 Dr. Nilton Bradford MD Admit Provider Active Sta rt: November 09, 2024 Dr. Nilton Bradford MD Attending Provider Active Start: November 09, 2024 Dr. Nilton Brafdord MD Other Provider Active Sta rt: November 09, 2024 Team Status: Active Member Role Status Dates Dr. Kristie Herndon MD Primary Care Provider Active Start: November 10, 2024 Dr. Aston Lemos DO Emergency Provider Active Start: November 10, 2024 Dr. Nilton Bradford MD Admit Provider Active Sta rt: November 10, 2024 Dr. Nilton Bradford MD Attending Provider Active Start: November 10, 2024 Dr. Nilton Bradford MD Other Provider Active Sta rt: November 10, 2024 Team Status: Inactive Member Role Status Dates Dr. Kristie Herndon MD Primary Care Provider Active Start: November 10, 2024 End: November 11, 2024 Dr. Aston Lemos , Emergency Provider Active Start: November 10, 2024 End: November 11, 2024 Dr. Nilton Bradford MD Admit Provider Active Sta rt: November 10, 2024 End: November 11, 2024 Dr. Nilton Bradford MD Attending Provider Active Start: November 10, 2024 End: November 11, 2024 Team Status: Active Member Role Status Dates Dr. Kristie Herndon MD Primary Care Provider Active Start: November 11, 2024 Dr. Aston Lemos DO Emergency Provider Active Start: November 11, 2024 Dr. Nilton Bradford MD Admit Provider Active Sta rt: November 11, 2024 Dr. Nilton Bradford MD Attending Provider Active Start: November 11, 2024 Dr. Nilton Bradford MD Other Provider Active Sta rt: November 11, 2024 Team Status: Inactive Member Role Status Dates Dr. Kristie Herndon MD Primary Care Provider Active Start: November 09, 2024 End: November 09, 2024 Dr. Kristie Herndon MD Attending Provider Active Start: November 09, 2024 End: November 09, 2024 Dr. Kristie Herndon MD Referring Provider Active Start: November 09, 2024 End: November 09, 2024 Goals (unrecognized section and content) Goals may be documented in a n alternate section FOR RECORDS PERTAINING TO PATIENTS WHO ARE OR HAVE BEEN ENROLLED IN A CHEMICAL DEPENDENCY/SUBSTANCEABUSE PROGRAM, SOME INFORMATION MAY BE OMITTED. This clinical summary was aggregated from multiple sources. Caution should be exercised in using it in the provision of clinical care. This summary normalizes information from multiple sources, and as a consequence, information in this document may materially change the coding, format and clinical context of patient data. In addition, data may be omitted in some cases. CLINICAL DECISIONS SHOULD BE BASED ON THE PRIMARY CLINICAL RECORDS. [employer] provides no warranty or guarantee of the accuracy or completeness of information in this document.
== END 2024-12-14 22:20 | disposition short-term general hospital (02) ==
PROVIDERS: Emergency Provider Emergency Medicine; PCP Family Medicine; Visit Provider Emergency Medicine
DX: J93.83 Other pneumothorax (principal); Z87.891 Personal history of nicotine dependence
CPT/HCPCS: 32551; 71045; 80048; 85025; 85610; 85730; 93005; 99285; A4216

== ENCOUNTER → 2024-12-14 | Outpatient (CLI) | payer SELFPAY, OTHER ==
--- NOTE | 2024-12-14 11:10 | RAD_ITS ---
EXAM: XR Chest, 2 Views CLINICAL INDICATION: PNEUMOTHORAX TECHNIQUE: Frontal and lateral views of the chest. COMPARISON: No relevant prior studies available. FINDINGS: LUNGS AND PLEURAL SPACES: Left pneumothorax, approximately 80% in volume reduction. HEART: Unremarkable. No cardiomegaly. MEDIASTINUM: Unremarkable. Normal mediastinal contour. BONES/JOINTS: Unremarkable. No acute fracture. RAD/Chest PA and Lateral IMPRESSION: Left pneumothorax, approximately 80% in volume reduction. Red Alert: Left pneumothorax The critical information above was relayed directly by me by telephone to Kristie Turcios on 12/14/2024 at 11:23 am with readback verification. Reading Location[facility]
== END | disposition home or self-care (01) ==
PROVIDERS: PCP Family Medicine; Referring Provider Family Medicine; Visit Provider Family Medicine
DX: J93.9 Pneumothorax, unspecified (principal)
CPT/HCPCS: 71046